=== PATIENT | male | born 1960 | race Asian ===

== ENCOUNTER 2016-10-20 16:32 | Emergency (ER) | payer MEDICARE, MEDICAID ==
[~2016-10-20] VITALS: Ht 167.6 cm; Wt 77.1 kg
[~2016-10-20 16:32] MED LIST: DOXYCYCLINE MO100 MG ORAL; FLONASE1 SPRAYS NASAL; IBUPROFEN800 MG ORAL; MEDROL DOSEPAK4 MG ORAL; PROMETHAZINE V237 ML ORAL; SUDAFED60 MG ORAL; [UNRECOGNIZED DRUG - OTHER] RIGHT EYE
[2016-10-20] MEDS ORDERED: Mylanta II UD 30ml ORAL ONE (17:15)
[2016-10-20] MEDS ORDERED: Lidocaine 2% Visc 15ml soln ORAL ONE (17:15)
[2016-10-20] MEDS ORDERED: Tubing IV Cassette IV ONE (17:31)
[2016-10-20 18:18] LABS: APPEARANCE,URINE CLEAR; KETONES,URINE NEGATIVE (NEGATIVE); LEUKOCYTE ESTERASE ,URINE NEGATIVE (NEGATIVE); NITRITE,URINE NEGATIVE (NEGATIVE); PH,URINE 6 (4.5-8.0); PROTEIN,URINE NEGATIVE (NEGATIVE); UROBILINOGEN,URINE NORMAL MG/DL (0.0-1.0)
[2016-10-20 18:20] LABS: BASOPHILS % (AUTO) 1.2 % (0.0-2.0); EOSINOPHILS % (AUTO) 0.9 % (0.0-3.0); LYMPHOCYTES % (AUTO) 20.7 % (20.0-45.0); MEAN CORPUSCULAR HEMOGLOBIN 33.5 PG (27.0-31.0); MEAN CORPUSCULAR HGB CONC 36.1 G/DL (32.0-36.0); MEAN CORPUSCULAR VOLUME 93 FL (80-99); MONOCYTES % (AUTO) 6.7 % (1.0-10.0); NEUTROPHILS % (AUTO) 70.6 % (45.0-75.0); PLATELET COUNT 193 K/UL (150-450); RED BLOOD COUNT 5.29 M/UL (4.70-6.10); RED CELL DISTRIBUTION WIDTH 11.5 % (11.6-14.8); WHITE BLOOD COUNT 8.4 K/UL (4.8-10.8)
[2016-10-20 18:45] LABS: ALANINE AMINOTRANSFERASE 22 U/L (3-41); ALBUMIN/GLOBULIN RATIO 1.2 (1.0-2.7); ANION GAP 13 (5-15); ASPARTATE AMINO TRANSFERASE 21 U/L (5-40); CALCIUM 9.5 mg/dL (8.6-10.2); CARBON DIOXIDE 29 mEQ/L (20-30); CHLORIDE 95 mEQ/L (98-107); CREATININE 0.9 mg/dL (0.7-1.2); GLOMERULAR FILTRATION RATE > 60 mL/min (>60); HEMOLYSIS 8; LIPASE 37 U/L (< 60); POTASSIUM 3.5 mEQ/L (3.4-4.9); SODIUM 137 mEQ/L (135-145); TOTAL PROTEIN 7.8 g/dL (6.6-8.7)
[2016-10-20 18:48] LABS: TROPONIN I < 0.30 ng/mL (<=0.30)
--- NOTE | 2016-10-20 18:53 | Emergency Room Report ---
History of Present Illness General Chief Complaint: Abdominal Pain Source: Patient Present Illness HPI 56YOM walk-in with epigastric pain and nausea without vomiting since this morning. Denies fever/chills, diarrhea, previous abd surgery, sick contacts, foreign travel. Pain is not radiating, "heavy" in quality, intermittent. Allergies: Coded Allergies: No Known Allergies (Unverified , 04/01/14) Patient History Past Medical History: none Past Surgical History: none Pertinent Family History: none Social History: Denies: alcohol use, drug use, smoking Immunizations: UTD Reviewed Nursing Documentation: PMH: Agreed, PSxH: Agreed Nursing Documentation-PMH Past Medical History: No History, Except For Hx Hypertension: Yes Review of Systems All Other Systems: negative except mentioned in HPI Physical Exam Vital Signs Date Time Temp Pulse Resp B/P Pulse Ox O2 Delivery O2 Flow Rate FiO2 10/20/16 16:36 98.2 79 18 156/103 98 Room Air Sp02 EP Interpretation: reviewed, abnormal General Appearance: normal inspection, well appearing, no apparent distress, alert, GCS 15, non-toxic Head: normocephalic, atraumatic Eyes: bilateral eye EOMI, bilateral eye PERRL ENT: normal ENT inspection, hearing grossly normal, normal voice Neck: normal inspection, full range of motion, supple, no bony tend Respiratory: normal inspection, lungs clear, normal breath sounds, no respiratory distress, no retraction, no wheezing Cardiovascular #1: regular rate, rhythm, no edema Gastrointestinal: soft, non-distended, no guarding, no pulsatile mass, no rebound, other - Mild ttp to epigastrium Genitourinary: no CVA tenderness Musculoskeletal: normal inspection, back normal, normal range of motion, Josiah' s Sign negative Neurologic: normal inspection, alert, oriented x3, responsive, traffic 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 H&H stable. No LFT or lipase abnormalities Not a UTI Tolerating PO No vomiting Abd exam negative on serial exam Likely gastroenteritis Low suspicion for acute bacterial or surgical process to warrant additional testing, management at this time DC home Last Vital Signs Date Time Temp Pulse Resp B/P Pulse Ox O2 Delivery O2 Flow Rate FiO2 10/20/16 16:36 98.2 79 18 156/103 98 Room Air Status: improved Disposition: HOME, SELF-CARE Referrals: NON PHYSICIAN (PCP) LANCE FOOTE M.D. October 20, 2016 18:53
[2016-10-20] MEDS ORDERED: ZOFRAN ODT4 MG ORAL (18:54)
[2016-10-20] MEDS ORDERED: PEPCID20 MG ORAL (18:54)
[2016-10-20 19:19] VITALS: BP 148/85
[2016-10-20 19:20] VITALS: BP 156/103
--- NOTE | 2016-10-21 18:50 | Cardiology Report ---
APPROVED REPORT EKG Measurement Heart [id number] Normal sinus rhythm Right bundle branch block Abnormal ECG
== END 2016-10-20 19:21 | disposition home or self-care (01) ==
LOC: EMR 17:12
DX: R10.13 Epigastric pain (principal); R11.0 Nausea; I10 Essential (primary) hypertension
CPT/HCPCS: 36415; 80053; 80300; 81003; 83690; 84484; 85025; 93005; 96360; 96374; 99284; J2405

== ENCOUNTER 2016-12-28 21:00 | Emergency (ER) | payer MEDICARE, MEDICAID ==
[~2016-12-28] VITALS: Ht 170.2 cm; Wt 77.1 kg
[~2016-12-28 21:00] MED LIST changes: +PEPCID20 MG ORAL; +ZOFRAN ODT4 MG ORAL
[2016-12-28] MEDS ORDERED: BENAZEPRIL HCL10 MG ORAL (21:19)
[2016-12-28] MEDS ORDERED: ALBUTEROL2.5 MG/3 M INH (21:19)
[2016-12-28] MEDS ORDERED: IBUPROFEN600 MG ORAL (22:07)
--- NOTE | 2016-12-28 22:08 | Emergency Room Report ---
History of Present Illness General Chief Complaint: Lower Extremity Injury Source: Patient Present Illness HPI Is a 56-year-old male who presents with chief complaint of left knee pain. He was on a skateboard and holding the leash of his dog. The dog took off and he fell to his knee. This occurred just prior to arrival. Complaining of pain over the knee. 12/16. Able to walk. No other injury. Did not pass out. Allergies: Coded Allergies: No Known Allergies (Unverified , 04/01/14) Patient History Past Medical History: see triage record, old chart reviewed Past Surgical History: other Pertinent Family History: none Social History: Denies: smoking Immunizations: other Reviewed Nursing Documentation: PMH: Agreed, PSxH: Agreed Nursing Documentation-PMH Hx Hypertension: Yes Review of Systems Eye: Denies: blurred vision, eye pain ENT: Denies: ear pain, nose congestion, throat swelling Respiratory: Denies: cough, shortness of breath Cardiovascular: Denies: chest pain, palpitations Gastrointestinal: Denies: abdominal pain, diarrhea, nausea, vomiting Musculoskeletal: Reports: joint pain, Denies: back pain Skin: Denies: rash Neurological: Denies: headache, numbness Endocrine: Denies: increased thirst, increased urine Hematologic/Lymphatic: Denies: easy bruising All Other Systems: negative except mentioned in HPI Physical Exam Vital Signs Date Time Temp Pulse Resp B/P Pulse Ox O2 Delivery O2 Flow Rate FiO2 12/28/16 21:12 98.2 72 18 149/92 97 vitals normal Sp02 EP Interpretation: reviewed, normal General Appearance: well appearing, no apparent distress, alert Head: normocephalic, atraumatic Eyes: bilateral eye EOMI, bilateral eye PERRL ENT: hearing grossly normal, normal pharynx Neck: full range of motion, supple, no meningismus Respiratory: chest non-tender, lungs clear, normal breath sounds Cardiovascular #1: regular rate, rhythm, no murmur Gastrointestinal: normal bowel sounds, non tender, no mass, no organomegaly, no bruit, non-distended Musculoskeletal: back normal, gait/station normal, normal range of motion, other Psychiatric: mood/affect normal Skin: warm/dry Medical Decision Making Diagnostic Impression: Primary Impression: Abrasion, left knee, initial encounter Additional Impression: Contusion of left knee, initial encounter ER Course Patient with soft tissue injury to the knee. No fracture dislocation. We'll discharge home. Other X-Ray Diagnostic Results Other X-Ray Diagnostic Results : X-Ray ordered: Left knee # of Views/Limited Vs Complete: 4 View Indication: Pain EP Interpretation: Yes Interpretation: no dislocation, no soft tissue swelling, no fractures Impression: No acute disease Interpreting ER Provider: Electronically signed by Gama Waldrop MD Last Vital Signs Date Time Temp Pulse Resp B/P Pulse Ox O2 Delivery O2 Flow Rate FiO2 12/28/16 21:12 98.2 72 18 149/92 97 Status: improved Disposition: HOME, SELF-CARE Condition: Stable Scripts Ibuprofen* (MOTRIN*) 600 Mg Tablet 600 MG ORAL THREE TIMES A DAY, #30 TAB 0 Refills Prov: GAMA WALDROP M.D. 12/28/16 Patient Instructions: Knee Sprain Additional Instructions: Followup with your DrNoemi in 7 days. Ice pack to the area. Return if worse. GAMA WALDROP M.D. Dec 28, 2016 22:08
[2016-12-28 22:18] VITALS: BP 149/92
--- NOTE | 2016-12-30 09:15 | Diagnostic Imaging Report ---
Indication: Trauma with pain Technique: XRAY KNEE THREE VIEWS LEFT Comparison: None. Findings: The osseous structures are intact. There is no fracture or destruction. The visualized joints are normal. There is an enthesophyte at the anterior superior margin of the patella. Soft tissues are unremarkable. There is no effusion. Impression: Small enthesophyte at the quadriceps tendon attachment. Otherwise negative.
== END 2016-12-28 22:19 | disposition home or self-care (01) ==
LOC: EMR 22:09
DX: S80.212A Abrasion, left knee, initial encounter (principal); S80.02XA Contusion of left knee, initial encounter; W19.XXXA Unspecified fall, initial encounter; Y93.51 Activity, roller skating (inline) and skateboarding; Y92.89 Other specified places as the place of occurrence of the external cause; I10 Essential (primary) hypertension
CPT/HCPCS: 99283

== ENCOUNTER 2017-05-08 16:37 | Emergency (ER) | payer MEDICARE, MEDICAID ==
[~2017-05-08] VITALS: Ht 170.2 cm; Wt 77.1 kg
[~2017-05-08 16:37] MED LIST changes: +ALBUTEROL2.5 MG/3 M INH; +BENAZEPRIL HCL10 MG ORAL; +IBUPROFEN600 MG ORAL
[2017-05-08 17:05] VITALS: BP 122/66
[2017-05-08] MEDS ORDERED: PREDNISONE20 MG ORAL (17:36)
[2017-05-08] MEDS ORDERED: EPIPEN 2-P0.3 MG/0.3 IM (17:36)
[2017-05-08] MEDS ORDERED: BENADRYL25 MG ORAL (17:36)
[2017-05-08 17:42] VITALS: BP 124/64
--- NOTE | 2017-05-08 21:46 | Emergency Room Report ---
History of Present Illness General Chief Complaint: Skin Rash/Abscess Source: Patient Present Illness HPI The patient is a 56-year-old male presenting with a skin rash. He states that this began yesterday for no known reason. He denies any known allergies but states that he has had hives in the past. He is unsure of what might have caused this. He states it is extremely itchy. He denies any pain. He took one Benadryl yesterday and states it did not help. He denies any other symptoms including nausea, vomiting, fever, chills, shortness of breath, chest pain Allergies: Coded Allergies: No Known Allergies (Unverified , 04/01/14) Patient History Past Medical History: see triage record Pertinent Family History: none Reviewed Nursing Documentation: PMH: Agreed, PSxH: Agreed Nursing Documentation-PMH Past Medical History: No Stated History Hx Hypertension: Yes Review of Systems All Other Systems: negative except mentioned in HPI Physical Exam Vital Signs Date Time Temp Pulse Resp B/P (MAP) Pulse Ox O2 Delivery O2 Flow Rate FiO2 05/08/17 16:57 97.9 99 16 113/65 97 Room Air Sp02 EP Interpretation: reviewed, normal General Appearance: no apparent distress, alert, GCS 15, non-toxic Head: normocephalic, atraumatic Eyes: bilateral eye normal inspection, bilateral eye PERRL ENT: hearing grossly normal, normal pharynx, no angioedema, normal voice Neck: full range of motion, supple/symm/no masses Respiratory: chest non-tender, lungs clear, normal breath sounds, no respiratory distress, no accessory muscle use, speaking full sentences Cardiovascular #1: regular rate, rhythm, no edema Musculoskeletal: back normal, gait/station normal, normal range of motion, non- tender Neurologic: alert, oriented x3, responsive, motor strength/tone normal, sensory intact, speech normal Psychiatric: judgement/insight normal, memory normal, mood/affect normal, no suicidal/homicidal ideation Skin: well hydrated, rash - Diffuse urticaria to the arms and torso Medical Decision Making PA Attestation Dr. Cheema is my supervising physician. Patient management was discussed with my supervising physician Diagnostic Impression: Primary Impression: Allergic reaction Qualified Codes: T78.40XA - Allergy, unspecified, initial encounter Additional Impression: Rash and other nonspecific skin eruption ER Course The patient is a 56-year-old male presenting with a skin rash. Ddx considered include but not limited to allergic reaction, anaphylaxis, eczema , cellulitis PE: NAD HEENT exam is unremarkable. No edema. Oropharynx is patent Lungs clear to auscultation bilaterally. No wheezing. No distress Skin: There is diffuse urticaria to the arms and torso. Nontender The patient is given prednisone and Benadryl and a prescription for EpiPen with instructions. He will followup with his primary doctor. ER precautions are given Last Vital Signs Date Time Temp Pulse Resp B/P (MAP) Pulse Ox O2 Delivery O2 Flow Rate FiO2 05/08/17 17:42 74 18 124/64 100 Room Air 05/08/17 17:05 97.9 Status: improved Disposition: HOME, SELF-CARE Condition: Improved Scripts Diphenhydramine Hcl* (BENADRYL*) 25 Mg Capsule 25 MG ORAL Q6H Y for Itching, #20 CAP Prov: JUDI DAWSON.A. 05/08/17 Prednisone* (PREDNISONE*) 20 Mg Tablet 40 MG ORAL DAILY, #8 TAB Prov: JUDI DAWSON P.A. 05/08/17 Epinephrine (Epipen 2-Jay) 0.3 Mg/0.3 Ml Auto.injct 0.3 MG IM PRN, #1 EA Prov: JUDI DAWSON P.A. 05/08/17 Referrals: [facility],REFERRING (PCP) Patient Instructions: Rash Additional Instructions: I discussed my findings with the patient. All questions and concerns have been answered. Treatment and medication compliance have been addressed. I advised the patient that they need to follow up with PMD in 3-5 days. Return to ED if symptoms worsen, new symptoms arise, or if needed for any reason. Patient verbalized understanding of discharge instructions. JUDI DAWSON May 08, 2017 21:46
== END 2017-05-08 18:00 | disposition home or self-care (01) ==
LOC: EMR 17:43
DX: T78.40XA Allergy, unspecified, initial encounter (principal); R21 Rash and other nonspecific skin eruption; X58.XXXA Exposure to other specified factors, initial encounter; I10 Essential (primary) hypertension
CPT/HCPCS: 99284

== ENCOUNTER 2017-05-22 18:36 | Inpatient (IN) | payer MEDICARE, MEDICAID ==
[~2017-05-22] VITALS: Ht 170.2 cm; Wt 77.1 kg
[~2017-05-22 18:36] MED LIST changes: +BENADRYL25 MG ORAL; +EPIPEN 2-P0.3 MG/0.3 IM; +PREDNISONE20 MG ORAL
[2017-05-22] MEDS ORDERED: Ondansetron ODT 8mg tab ORAL ONE (19:15)
[2017-05-22 20:08] LABS: BASOPHILS % (AUTO) 0.3 % (0.0-2.0); EOSINOPHILS % (AUTO) 0.3 % (0.0-3.0); LYMPHOCYTES % (AUTO) 18.2 % (20.0-45.0); MEAN CORPUSCULAR HEMOGLOBIN 30.6 PG (27.0-31.0); MEAN CORPUSCULAR HGB CONC 32.3 G/DL (32.0-36.0); MEAN CORPUSCULAR VOLUME 95 FL (80-99); MEAN PLATELET VOLUME 7.6 FL (6.5-10.1); MONOCYTES % (AUTO) 6.6 % (1.0-10.0); NEUTROPHILS % (AUTO) 74.6 % (45.0-75.0); PLATELET COUNT 290 K/UL (150-450); RED BLOOD COUNT 6.09 M/UL (4.70-6.10); RED CELL DISTRIBUTION WIDTH 11.8 % (11.6-14.8); WHITE BLOOD COUNT 15.7 K/UL (4.8-10.8)
[2017-05-22 20:13] LABS: APPEARANCE,URINE CLEAR; KETONES,URINE NEGATIVE (NEGATIVE); LEUKOCYTE ESTERASE ,URINE NEGATIVE (NEGATIVE); NITRITE,URINE NEGATIVE (NEGATIVE); PH,URINE 7 (4.5-8.0); PROTEIN,URINE NEGATIVE (NEGATIVE); UROBILINOGEN,URINE NORMAL MG/DL (0.0-1.0)
[2017-05-22 20:25] LABS: ANION GAP 5 mmol/L (5-15); CALCIUM 10.2 MG/DL (8.5-10.1); CARBON DIOXIDE 36 MMOL/L (21-32); CHLORIDE 96 MMOL/L (98-107); CREATININE 1.3 MG/DL (0.55-1.30); GLOMERULAR FILTRATION RATE 57.3 mL/min (>60); POTASSIUM 4.1 MMOL/L (3.5-5.1); SODIUM 137 MMOL/L (136-145)
[2017-05-22 20:27] LABS: ALANINE AMINOTRANSFERASE 29 U/L (12-78); ALBUMIN/GLOBULIN RATIO 0.9 (1.0-2.7); ASPARTATE AMINO TRANSFERASE 15 U/L (15-37); LIPASE 1298 U/L (73-393); TOTAL PROTEIN 7.5 G/DL (6.4-8.2)
[2017-05-22] MEDS ORDERED: Morphine Sulfate 4mg/ml Inj IVP ONE (20:45)
[2017-05-22 21:41] VITALS: BP 150/95
--- NOTE | 2017-05-22 21:55 | Emergency Room Report ---
History of Present Illness General Chief Complaint: General Complaint Source: Patient, Medical Record Present Illness HPI 56 y/o male c/o flu-like sxs x today. Assoc sxs include epigastric pain with nausea, vomiting, bodyaches and chills. States that onset began this morning after taking atarax and benadryl for his hives which he describes is pruritic and universal which has been present for 2 weeks and just completed a 2 week course of prednisone w/o resolution of sxs. States he has taken nothing else for his sxs and denies any CP, SOB, back pain, neck pain, [place], ear pain, sore throat or melena. Allergies: Coded Allergies: No Known Allergies (Unverified , 04/01/14) Patient History Past Medical History: see triage record Past Surgical History: none Pertinent Family History: none Reviewed Nursing Documentation: PMH: Agreed, PSxH: Agreed Nursing Documentation-PMH Past Medical History: No History, Except For Hx Hypertension: Yes Review of Systems All Other Systems: negative except mentioned in HPI Physical Exam Vital Signs Date Time Temp Pulse Resp B/P (MAP) Pulse Ox O2 Delivery O2 Flow Rate FiO2 05/22/17 18:42 97.9 68 18 150/95 97 Room Air Sp02 EP Interpretation: reviewed, normal General Appearance: no apparent distress, alert, GCS 15, non-toxic, other - ill appearing Head: normocephalic, atraumatic Eyes: bilateral eye normal inspection, bilateral eye PERRL ENT: hearing grossly normal, normal pharynx, no angioedema, normal voice Neck: full range of motion, supple/symm/no masses Respiratory: chest non-tender, lungs clear, normal breath sounds, speaking full sentences Cardiovascular #1: regular rate, rhythm, no edema Gastrointestinal: soft, non-distended, no guarding, no hernia, tenderness - epigastric Musculoskeletal: back normal, gait/station normal, normal range of motion, non- tender, calf tenderness Neurologic: alert, oriented x3, responsive, motor strength/tone normal, sensory intact, speech normal Psychiatric: judgement/insight normal, memory normal, mood/affect normal, no suicidal/homicidal ideation Skin: normal color, warm/dry, well hydrated, rash - universal macularpapular rash Lymphatic: no adenopathy Medical Decision Making PA Attestation Dr. Putnam my supervising physician with whom patient management has been discussed with. Diagnostic Impression: Primary Impression: Pancreatitis Qualified Codes: K85.90 - Acute pancreatitis without necrosis or infection, unspecified ER Course Pt. presents to the ED c/o flu-like sxs Differential diagnosis includes appendicitis, diverticulitis, gastroenteritis, abdominal hernia, pancreatitis, cholecystitis, nephrolithiasis, and testicular torsion. Vital signs: are WNL, pt. is afebrile H&PE are most consistent with pancreatitis with lipase >1200 ORDERS / ED INTERVENTIONS: My Orders - AMANDA BULLARD Procedure Category Date Status Time Vital Signs CARE 05/22/17 Transmitted 19:08 Iv Access / Saline CARE 05/22/17 Transmitted Lock 19:08 Cbc W/ Differential LAB 05/22/17 Complete 19:08 CMP LAB 05/22/17 Complete 19:08 Lipase LAB 05/22/17 Complete 19:08 Urinalysis Reflex LAB 05/22/17 Complete Microscopy 19:08 Ns 1000ml (Sodium PHA 05/22/17 Complete Chloride 1000ml Bag) 19:08 Ondansetron Odt PHA 05/22/17 Complete (Zofran Odt) 19:15 Saline 10ml Flush PHA 05/22/17 In Process (Saline 10ml Flush) 19:[address] 05/22/17 Taken W/Contrast 20:33 Morphine Sulfate PHA 05/22/17 Complete (Morphine Sulfate) 20:45 DISCHARGE: At this time pt. is stable for d/c to home. Will provide printed patient care instructions, and any necessary prescriptions. Care plan and follow up instructions have been discussed with the patient prior to discharge. Laboratory Tests Test 05/22/17 19:40 White Blood Count 15.7 K/UL (4.8-10.8) H Red Blood Count 6.09 M/UL (4.70-6.10) Hemoglobin 18.6 G/DL (14.2-18.0) *H Hematocrit 57.6 % (42.0-52.0) H Mean Corpuscular Volume 95 FL (80-99) Mean Corpuscular Hemoglobin 30.6 PG (27.0-31.0) Mean Corpuscular Hemoglobin Concent 32.3 G/DL (32.0-36.0) Red Cell Distribution Width 11.8 % (11.6-14.8) Platelet Count 290 K/UL (150-450) Mean Platelet Volume 7.6 FL (6.5-10.1) Neutrophils (%) (Auto) 74.6 % (45.0-75.0) Lymphocytes (%) (Auto) 18.2 % (20.0-45.0) L Monocytes (%) (Auto) 6.6 % (1.0-10.0) Eosinophils (%) (Auto) 0.3 % (0.0-3.0) Basophils (%) (Auto) 0.3 % (0.0-2.0) Urine Color Pale yellow Urine Appearance Clear Urine pH 7 (4.5-8.0) Urine Specific [place] 1.015 (1.005-1.035) Urine Protein Negative (NEGATIVE) Urine Glucose (UA) Negative (NEGATIVE) Urine Ketones Negative (NEGATIVE) Urine Occult Blood Negative (NEGATIVE) Urine Nitrite Negative (NEGATIVE) Urine Bilirubin Negative (NEGATIVE) Urine Urobilinogen Normal MG/DL (0.0-1.0) Urine Leukocyte Esterase Negative (NEGATIVE) Sodium Level 137 MMOL/L (136-145) Potassium Level 4.1 MMOL/L (3.5-5.1) Chloride Level 96 MMOL/L (98-107) L Carbon Dioxide Level 36 MMOL/L (21-32) H Anion Gap 5 mmol/L (5-15) Blood Urea Nitrogen 14 mg/dL (7-18) Creatinine 1.3 MG/DL (0.55-1.30) Estimate Glomerular Filtration Rate 57.3 mL/min (>60) Glucose Level 140 MG/DL (74-106) H Calcium Level 10.2 MG/DL (8.5-10.1) H Total Bilirubin 0.9 MG/DL (0.2-1.0) Aspartate Amino Transferase (AST) 15 U/L (15-37) Alanine Aminotransferase (ALT) 29 U/L (12-78) Alkaline Phosphatase 77 U/L (46-116) Total Protein 7.5 G/DL (6.4-8.2) Albumin 3.5 G/DL (3.4-5.0) Globulin 4.0 g/dL Albumin/Globulin Ratio 0.9 (1.0-2.7) L Lipase 1298 U/L (73-393) H Last Vital Signs Date Time Temp Pulse Resp B/P (MAP) Pulse Ox O2 Delivery O2 Flow Rate FiO2 05/22/17 21:41 97.9 18 150/95 97 Room Air 05/22/17 18:42 68 Disposition: ADMITTED INPATIENT Admit Decision Time: 20:48 Signed Out To: Dr. Putnam Referrals: NON PHYSICIAN (PCP) AMANDA BULLARD May 22, 2017 21:55
[2017-05-22 22:30] VITALS: BP 133/78
[2017-05-22] MEDS ORDERED: Nitroglycerin Subl 0.4mg tab SL PRN (22:45)
[2017-05-22] MEDS ORDERED: Mylanta II UD 30ml ORAL PRN (22:45)
[2017-05-22] MEDS ORDERED: Metoclopramide 10mg/2ml Inj IVP PRN (22:45)
[2017-05-22] MEDS ORDERED: Miralax 17gm pkt ORAL PRN (22:45)
[2017-05-22] MEDS ORDERED: LORazepam Inj 2mg/ml 1ml IV PRN (22:45)
[2017-05-22] MEDS: D5 1/2NS 1,000 ML IV SCH (23:38)
[2017-05-23] VITALS: BP_SYST 127; BP_SYST 99; BP_DIAS 60; BP_DIAS 71
[2017-05-23] MEDS: Morphine Sulfate 2mg/ml Inj IVP PRN ×2 (00:20→04:21)
[2017-05-23 04:00] VITALS: BP 129/84
[2017-05-23 07:30] LABS: ALANINE AMINOTRANSFERASE 21 U/L (12-78); ALBUMIN/GLOBULIN RATIO 0.8 (1.0-2.7); AMYLASE 102 U/L (25-115); ANION GAP 5 mmol/L (5-15); ASPARTATE AMINO TRANSFERASE 13 U/L (15-37); CALCIUM 8.7 MG/DL (8.5-10.1); CARBON DIOXIDE 32 MMOL/L (21-32); CHLORIDE 97 MMOL/L (98-107); CREATININE 1.1 MG/DL (0.55-1.30); GLOMERULAR FILTRATION RATE > 60 mL/min (>60); LIPASE 447 U/L (73-393); POTASSIUM 4.1 MMOL/L (3.5-5.1); SODIUM 134 MMOL/L (136-145); TOTAL PROTEIN 6.3 G/DL (6.4-8.2)
[2017-05-23 07:32] LABS: BILIRUBIN,DIRECT 0.2 MG/DL (0.0-0.3)
[2017-05-23 07:35] LABS: BASOPHILS % (AUTO) 0.6 % (0.0-2.0); EOSINOPHILS % (AUTO) 0.5 % (0.0-3.0); MEAN CORPUSCULAR HEMOGLOBIN 31.8 PG (27.0-31.0); MEAN CORPUSCULAR HGB CONC 33.7 G/DL (32.0-36.0); MEAN CORPUSCULAR VOLUME 94 FL (80-99); MEAN PLATELET VOLUME 7.7 FL (6.5-10.1); MONOCYTES % (AUTO) 5.7 % (1.0-10.0); NEUTROPHILS % (AUTO) 79.2 % (45.0-75.0); PLATELET COUNT 256 K/UL (150-450); RED BLOOD COUNT 5.29 M/UL (4.70-6.10); RED CELL DISTRIBUTION WIDTH 11.5 % (11.6-14.8); WHITE BLOOD COUNT 13.1 K/UL (4.8-10.8)
[2017-05-23 08:00] VITALS: BP 125/72
--- NOTE | 2017-05-23 08:27 | Consultation ---
History of Present Illness General Date patient seen: May 23, 2017 Time patient seen: 12:00 Chief Complaint: General Complaint Referring physician: dr Reeves Reason for Consultation: inpatient management Present Illness HPI 56 y/o male presented with epigastric pain with nausea, vomiting, body aches and chills. Patient recently developed systemic hives and was on Atarax, Benadryl and 3 bottles of steroids apparently had allergy to shellfish and recently ate crab denied any CP, SOB, back pain, neck pain, SPRING, ear pain, sore throat or melena. Workup in ED revealed lipase-1298, WBC -15.7, stable LFT and bili CT AP revealed no acute findings patient was admitted for further management Allergies: Coded Allergies: SHELLFISH DERIVED (Verified Adverse Reaction, Severe, Hives, 05/23/17) Medication History Scheduled Benazepril Hcl* (Benazepril Hcl*), 10 MG ORAL DAILY, (Reported) Epinephrine (Epipen 2-Jay), 0.3 MG IM PRN Fluticasone Propionate (Fluticasone Propionate), 1 SPRAY NASAL TWICE A DAY Ibuprofen* (Motrin*), 600 MG ORAL THREE TIMES A DAY Prednisone* (Prednisone*), 40 MG ORAL DAILY Scheduled PRN Albuterol Sulfate* (Albuterol Sulfate Hhn*), Unknown Dose INH Q4H PRN for Shortness of Breath, (Reported) Diphenhydramine Hcl* (Benadryl*), 25 MG ORAL Q6H PRN for Itching Patient History History Provided By: Patient Healthcare decision maker Resuscitation status Full Code Advanced Directive on File Past Medical/Surgical History Past Medical/Surgical History: (1) Arthritis (2) Allergic reaction Review of Systems Constitutional: Reports: see HPI Eye: Reports: no symptoms ENT: Reports: no symptoms Respiratory: Reports: no symptoms Cardiovascular: Reports: no symptoms Gastrointestinal: Reports: see HPI Genitourinary: Reports: no symptoms Musculoskeletal: Reports: other - arthritis Skin: Reports: see HPI Psychiatric: Reports: no symptoms Neurological: Reports: no symptoms Endocrine: Reports: no symptoms Hematologic/Lymphatic: Reports: no symptoms Physical Exam General Appearance: WD/WN, alert Lines, tubes and drains: peripheral HEENT: normocephalic, atraumatic, anicteric, mucous membranes moist Neck: non-tender, supple Respiratory/Chest: chest wall non-tender, lungs clear, no respiratory distress , no accessory muscle use Cardiovascular/Chest: normal peripheral pulses, normal rate, regular rhythm, no JVD Abdomen: normal bowel sounds, non tender, soft Extremities: normal range of motion, non-tender, no calf tenderness, normal capillary refill Neurologic: no motor/sensory deficits, alert, oriented x 3, responsive, normal mood/affect Musculoskeletal: normal muscle bulk Last 24 Hour Vital Signs Date Time Temp Pulse Resp B/P (MAP) Pulse Ox O2 Delivery O2 Flow Rate FiO2 05/23/17 04:00 98.8 80 20 129/84 98 05/23/17 00:00 98.5 75 20 127/71 100 05/22/17 22:30 99.9 72 18 133/78 100 05/22/17 21:41 97.9 18 150/95 97 Room Air 05/22/17 21:41 97.9 18 150/95 97 Room Air 05/22/17 18:42 97.9 68 18 150/95 97 Room Air Laboratory Tests Test 05/22/17 19:40 05/23/17 05:55 White Blood Count 15.7 K/UL (4.8-10.8) H 13.1 K/UL (4.8-10.8) H Red Blood Count 6.09 M/UL (4.70-6.10) 5.29 M/UL (4.70-6.10) Hemoglobin 18.6 G/DL (14.2-18.0) *H 16.8 G/DL (14.2-18.0) Hematocrit 57.6 % (42.0-52.0) H 49.9 % (42.0-52.0) Mean Corpuscular Volume 95 FL (80-99) 94 FL (80-99) Mean Corpuscular Hemoglobin 30.6 PG (27.0-31.0) 31.8 PG (27.0-31.0) H Mean Corpuscular Hemoglobin Concent 32.3 G/DL (32.0-36.0) 33.7 G/DL (32.0-36.0) Red Cell Distribution Width 11.8 % (11.6-14.8) 11.5 % (11.6-14.8) L Platelet Count 290 K/UL (150-450) 256 K/UL (150-450) Mean Platelet Volume 7.6 FL (6.5-10.1) 7.7 FL (6.5-10.1) Neutrophils (%) (Auto) 74.6 % (45.0-75.0) 79.2 % (45.0-75.0) H Lymphocytes (%) (Auto) 18.2 % (20.0-45.0) L 14.0 % (20.0-45.0) L Monocytes (%) (Auto) 6.6 % (1.0-10.0) 5.7 % (1.0-10.0) Eosinophils (%) (Auto) 0.3 % (0.0-3.0) 0.5 % (0.0-3.0) Basophils (%) (Auto) 0.3 % (0.0-2.0) 0.6 % (0.0-2.0) Urine Color Pale yellow Urine Appearance Clear Urine pH 7 (4.5-8.0) Urine Specific [place] 1.015 (1.005-1.035) Urine Protein Negative (NEGATIVE) Urine Glucose (UA) Negative (NEGATIVE) Urine Ketones Negative (NEGATIVE) Urine Occult Blood Negative (NEGATIVE) Urine Nitrite Negative (NEGATIVE) Urine Bilirubin Negative (NEGATIVE) Urine Urobilinogen Normal MG/DL (0.0-1.0) Urine Leukocyte Esterase Negative (NEGATIVE) Sodium Level 137 MMOL/L (136-145) 134 MMOL/L (136-145) L Potassium Level 4.1 MMOL/L (3.5-5.1) 4.1 MMOL/L (3.5-5.1) Chloride Level 96 MMOL/L (98-107) L 97 MMOL/L (98-107) L Carbon Dioxide Level 36 MMOL/L (21-32) H 32 MMOL/L (21-32) Anion Gap 5 mmol/L (5-15) 5 mmol/L (5-15) Blood Urea Nitrogen 14 mg/dL (7-18) 10 mg/dL (7-18) Creatinine 1.3 MG/DL (0.55-1.30) 1.1 MG/DL (0.55-1.30) Estimat Glomerular Filtration Rate 57.3 mL/min (>60) > 60 mL/min (>60) Glucose Level 140 MG/DL (74-106) H 159 MG/DL (74-106) H Calcium Level 10.2 MG/DL (8.5-10.1) H 8.7 MG/DL (8.5-10.1) Total Bilirubin 0.9 MG/DL (0.2-1.0) 1.1 MG/DL (0.2-1.0) H Aspartate Amino Transf (AST/SGOT) 15 U/L (15-37) 13 U/L (15-37) L Alanine Aminotransferase (ALT/SGPT) 29 U/L (12-78) 21 U/L (12-78) Alkaline Phosphatase 77 U/L (46-116) 66 U/L (46-116) Total Protein 7.5 G/DL (6.4-8.2) 6.3 G/DL (6.4-8.2) L Albumin 3.5 G/DL (3.4-5.0) 2.8 G/DL (3.4-5.0) L Globulin 4.0 g/dL 3.5 g/dL Albumin/Globulin Ratio 0.9 (1.0-2.7) L 0.8 (1.0-2.7) L Lipase 1298 U/L (73-393) H 447 U/L (73-393) H Activated Partial Thromboplast Time 28 SEC (23-33) Direct Bilirubin 0.2 MG/DL (0.0-0.3) Amylase Level 102 U/L (25-115) Height (Feet): 5 Height (Inches): 7.00 Weight (Pounds): 170 Medications Current Medications Medications (Trade) Dose Ordered Sig/Michelle Route PRN Reason Start Time Stop Time Status Last Admin Dose Admin Acetaminophen (Tylenol) 650 mg Q4H PRN ORAL fever 05/22/17 22:45 06/21/17 22:44 Al Hydroxide/Mg Hydroxide (Mylanta II) 30 ml Q6H PRN ORAL dyspepsia 05/22/17 22:45 06/21/17 22:44 Benazepril HCl (Lotensin) 10 mg DAILY ORAL 05/23/17 09:00 06/22/17 08:59 Dextrose (Dextrose 50%) STAT PRN IV Hypoglycemia 05/22/17 22:45 1/13/18 22:44 Dextrose/Sodium Chloride 1,000 ml @ 75 mls/hr [id number] IV 05/22/17 22:36 06/21/17 22:35 05/22/17 23:38 Diphenhydramine HCl (Benadryl) 25 mg Q6H PRN ORAL Itching/Pruritis 05/22/17 22:45 06/21/17 22:44 Heparin Sodium (Porcine) (Heparin 5000 units/ml) 5,000 units EVERY 12 HOURS SUBQ 05/23/17 09:00 06/22/17 08:59 Lorazepam (Ativan 2mg/ml 1ml) 1 mg EVERY 4 HOURS PRN IV agitation 05/22/17 22:45 05/29/17 22:44 Metoclopramide HCl (Reglan) 10 mg EVERY 6 HOURS PRN IVP servere nauasea 05/22/17 22:45 06/21/17 22:44 Morphine Sulfate (Morphine Sulfate) 2 mg EVERY 4 HOURS PRN IVP severe Pain (Pain Scale 7-10) 05/22/17 22:45 05/29/17 22:44 05/23/17 04:21 Nitroglycerin (Ntg) 0.4 mg Q5M X 3 DOSES PRN SL Prn Chest Pain 05/22/17 22:45 06/21/17 22:44 Ondansetron HCl (Zofran) 4 mg Q6H PRN IVP Nausea & Vomiting 05/22/17 22:45 06/21/17 22:44 Pantoprazole (Protonix) 40 mg DAILY IV 05/23/17 09:00 06/22/17 08:59 Polyethylene Glycol (Miralax) 17 gm HSPRN PRN ORAL Constipation 05/22/17 22:45 06/21/17 22:44 Promethazine HCl (Phenergan) 25 mg EVERY 8 HOURS PRN IV refractory nausea 05/22/17 22:45 06/21/17 22:44 Temazepam (Restoril) 15 mg HSPRN PRN ORAL Insomnia 05/22/17 22:45 05/29/17 22:44 Assessment/Plan Assessment/Plan ASSESSMENT allergic reaction possible acute pancreatitis, likely drug induced Leukocytosis epigastric pain HTN PLAN OF CARE MS floor IVF trial of CL and advance as tolerated Pain management a/emetic prn GI eval appreciated Trend lipase, amylase CT A/P noted abdominal US pending Benadryl prn s/p steroids DVT GI prophylaxis patient on LACHELLE, will stop as possible factor in allergic reaction case discussed and evaluated by supervising physician Ki (Graeme),Tashia FIERRO May 23, 2017 08:27
[2017-05-23] MEDS: Pantoprazole Inj IV SCH (08:43)
[2017-05-23] MEDS: Heparin 5000 units/ml inj SUBQ SCH ×2 (08:45→20:40)
[2017-05-23] MEDS ORDERED: Benazepril 10mg tab ORAL SCH (09:00)
--- NOTE | 2017-05-23 10:18 | Diagnostic Imaging Report ---
Clinical Indication: Abdominal pain Technique: No oral contrast utilized, per emergency room physician request IV administration nonionic contrast. Venous phase spiral acquisition obtained through the abdomen and pelvis. Multiplanar reconstructions were generated. Total dose length product 676.42 mGycm. CTDIvol(s) 12.84 mGy. Dose reduction achieved using automated exposure control Comparison: none Findings: Normal appendix. No evidence of diverticulosis or diverticulitis. No small bowel distention. No free or loculated intraperitoneal air or fluid is evident. The stomach is mildly distended. The distal esophagus is unremarkable. The duodenum is unremarkable. The liver, gallbladder, bile ducts, pancreas, spleen, adrenals are unremarkable. Subcentimeter low-attenuation renal lesions are seen bilaterally. No renal or ureteral calculi, hydronephrosis, or hydroureter. No pelvic mass or adenopathy. No retroperitoneal or mesenteric mass or adenopathy. The included lung bases are clear. The bones are unremarkable Impression: No acute abnormality Incidental finding subcentimeter low-attenuation renal lesions, too small to characterize. No further follow-up necessary This agrees with the preliminary interpretation provided overnight by [facility] teleradiology service. The CT scanner at [facility] is accredited by the [employer] and the scans are performed using protocols designed to limit radiation exposure to as low as reasonably achievable to attain images of sufficient resolution adequate for diagnostic evaluation.
[2017-05-23] MEDS ORDERED: DiphenhydrAMINE 50mg/ml Inj IVP PRN (10:30)
--- NOTE | 2017-05-23 10:58 | GI Initial Consult Note ---
History of Present Illness General Date patient seen: May 23, 2017 Time patient seen: 10:51 Reason for Hospitalization: General Complaint Referring physician: ABELARDO SMITH Reason for Consultation: Pancreatitis Present Illness HPI 56 y/o male c/o flu-like sxs x today. Assoc sxs include epigastric pain with nausea, vomiting, bodyaches and chills. States that onset began this morning after taking atarax and benadryl for his hives which he describes is pruritic and universal which has been present for 2 weeks and just completed a 2 week course of prednisone w/o resolution of sxs. States he has taken nothing else for his sxs and denies any CP, SOB, back pain, neck pain, SPRING, ear pain, sore throat or melena. GI consulted for pancreatitis. HPI as noted above. Pt seen on floor, awake A &Ox4 NAD with no active s/sx of N/V/D. Noted that patient has systemic hives. Stated it originally started as flea/bites when his son had the patient put on hydrogen peroxide all over his body x 24 hours and made it worse. The patient went to urgent care and was prescribe medication with no relief. Patient stated he took 3 bottles of prednisone. Further assessment revealed the patient may have an allergy to shellfish, stated he is allergic to shrimp and had recently eaten crab. He presents today with pancreatitis and mild leukocytosis. No history of endoscopies or colonoscopies. Home Meds Active Scripts Diphenhydramine Hcl* (BENADRYL*) 25 Mg Capsule, 25 MG ORAL Q6H Y for Itching, # 20 CAP Prov:TERZIAN,JUDI P.A. 05/08/17 Prednisone* (PREDNISONE*) 20 Mg Tablet, 40 MG ORAL DAILY, #8 TAB Prov:TERZIAN,JUDI P.A. 05/08/17 Epinephrine (Epipen 2-Jay) 0.3 Mg/0.3 Ml Auto.injct, 0.3 MG IM PRN, #1 EA Prov:TERZIAN,JUDI P.A. 05/08/17 Ibuprofen* (MOTRIN*) 600 Mg Tablet, 600 MG ORAL THREE TIMES A DAY, #30 TAB 0 Refills Prov:SUE LEVINE M.D. 12/28/16 Fluticasone Propionate (Fluticasone Propionate) 1 Sprays Naspr, 1 SPRAY NASAL TWICE A DAY, #16 GM Prov:JOSE MARIAALESHIA A. P.A. 07/01/14 Reported Medications Albuterol Sulfate* (ALBUTEROL SULFATE HHN*) 2.5 Mg/3 Ml Vial.neb, INH Q4H Y for Shortness of Breath, EA 12/28/16 Benazepril Hcl* (BENAZEPRIL HCL*) 10 Mg Tablet, 10 MG ORAL DAILY, TAB 12/28/16 Med list reviewed/reconciled: Yes Allergies: Coded Allergies: SHELLFISH DERIVED (Verified Adverse Reaction, Severe, Hives, 05/23/17) Patient History History Provided By: Patient, Medical Record PMH Narrative Past Medical History: see triage record Past Surgical History: none Pertinent Family History: none Reviewed Nursing Documentation: PMH: Agreed, PSxH: Agreed Nursing Documentation-PMH Past Medical History: No History, Except For Hx Hypertension: Yes Social History: Denies: smoking, alcohol use, drug use, other Review of Systems All Other Systems: negative except mentioned in HPI Physical Exam Vital Signs Date Time Temp Pulse Resp B/P (MAP) Pulse Ox O2 Delivery O2 Flow Rate FiO2 05/22/17 18:42 97.9 68 18 150/95 97 Room Air Sp02 EP Interpretation: reviewed, normal Labs Laboratory Tests Test 05/22/17 19:40 05/23/17 05:55 White Blood Count 15.7 K/UL (4.8-10.8) H 13.1 K/UL (4.8-10.8) H Red Blood Count 6.09 M/UL (4.70-6.10) 5.29 M/UL (4.70-6.10) Hemoglobin 18.6 G/DL (14.2-18.0) *H 16.8 G/DL (14.2-18.0) Hematocrit 57.6 % (42.0-52.0) H 49.9 % (42.0-52.0) Mean Corpuscular Volume 95 FL (80-99) 94 FL (80-99) Mean Corpuscular Hemoglobin 30.6 PG (27.0-31.0) 31.8 PG (27.0-31.0) H Mean Corpuscular Hemoglobin Concent 32.3 G/DL (32.0-36.0) 33.7 G/DL (32.0-36.0) Red Cell Distribution Width 11.8 % (11.6-14.8) 11.5 % (11.6-14.8) L Platelet Count 290 K/UL (150-450) 256 K/UL (150-450) Mean Platelet Volume 7.6 FL (6.5-10.1) 7.7 FL (6.5-10.1) Neutrophils (%) (Auto) 74.6 % (45.0-75.0) 79.2 % (45.0-75.0) H Lymphocytes (%) (Auto) 18.2 % (20.0-45.0) L 14.0 % (20.0-45.0) L Monocytes (%) (Auto) 6.6 % (1.0-10.0) 5.7 % (1.0-10.0) Eosinophils (%) (Auto) 0.3 % (0.0-3.0) 0.5 % (0.0-3.0) Basophils (%) (Auto) 0.3 % (0.0-2.0) 0.6 % (0.0-2.0) Urine Color Pale yellow Urine Appearance Clear Urine pH 7 (4.5-8.0) Urine Specific [place] 1.015 (1.005-1.035) Urine Protein Negative (NEGATIVE) Urine Glucose (UA) Negative (NEGATIVE) Urine Ketones Negative (NEGATIVE) Urine Occult Blood Negative (NEGATIVE) Urine Nitrite Negative (NEGATIVE) Urine Bilirubin Negative (NEGATIVE) Urine Urobilinogen Normal MG/DL (0.0-1.0) Urine Leukocyte Esterase Negative (NEGATIVE) Sodium Level 137 MMOL/L (136-145) 134 MMOL/L (136-145) L Potassium Level 4.1 MMOL/L (3.5-5.1) 4.1 MMOL/L (3.5-5.1) Chloride Level 96 MMOL/L (98-107) L 97 MMOL/L (98-107) L Carbon Dioxide Level 36 MMOL/L (21-32) H 32 MMOL/L (21-32) Anion Gap 5 mmol/L (5-15) 5 mmol/L (5-15) Blood Urea Nitrogen 14 mg/dL (7-18) 10 mg/dL (7-18) Creatinine 1.3 MG/DL (0.55-1.30) 1.1 MG/DL (0.55-1.30) Estimat Glomerular Filtration Rate 57.3 mL/min (>60) > 60 mL/min (>60) Glucose Level 140 MG/DL (74-106) H 159 MG/DL (74-106) H Calcium Level 10.2 MG/DL (8.5-10.1) H 8.7 MG/DL (8.5-10.1) Total Bilirubin 0.9 MG/DL (0.2-1.0) 1.1 MG/DL (0.2-1.0) H Aspartate Amino Transf (AST/SGOT) 15 U/L (15-37) 13 U/L (15-37) L Alanine Aminotransferase (ALT/SGPT) 29 U/L (12-78) 21 U/L (12-78) Alkaline Phosphatase 77 U/L (46-116) 66 U/L (46-116) Total Protein 7.5 G/DL (6.4-8.2) 6.3 G/DL (6.4-8.2) L Albumin 3.5 G/DL (3.4-5.0) 2.8 G/DL (3.4-5.0) L Globulin 4.0 g/dL 3.5 g/dL Albumin/Globulin Ratio 0.9 (1.0-2.7) L 0.8 (1.0-2.7) L Lipase 1298 U/L (73-393) H 447 U/L (73-393) H Activated Partial Thromboplast Time 28 SEC (23-33) Direct Bilirubin 0.2 MG/DL (0.0-0.3) Amylase Level 102 U/L (25-115) General Appearance: well appearing, no apparent distress, alert Head: normocephalic EENT: PERRL/EOMI, normal ENT inspection Neck: supple Respiratory: normal breath sounds, no respiratory distress Cardiovascular: normal rate Gastrointestinal: normal inspection, non tender, soft, normal bowel sounds, non -distended Rectal: deferred Genitourinary: deferred Musculoskeletal: normal inspection, back normal Neurologic: normal inspection, alert, oriented x3, responsive Psychiatric: normal inspection, judgement/insight normal, memory normal Skin: normal inspection, normal color, warm/dry, palpation normal, well hydrated, rash - systemic hives Lymphatic: normal inspection, no adenopathy Current Medications Current Medications Medications (Trade) Dose Ordered Sig/Michelle Route PRN Reason Start Time Stop Time Status Last Admin Dose Admin Acetaminophen (Tylenol) 650 mg Q4H PRN ORAL fever 05/22/17 22:45 06/21/17 22:44 Al Hydroxide/Mg Hydroxide (Mylanta II) 30 ml Q6H PRN ORAL dyspepsia 05/22/17 22:45 06/21/17 22:44 Benazepril HCl (Lotensin) 10 mg DAILY ORAL 05/23/17 09:00 06/22/17 08:59 05/23/17 08:44 Dextrose (Dextrose 50%) STAT PRN IV Hypoglycemia 05/22/17 22:45 06/21/17 22:44 Dextrose/Sodium Chloride 1,000 ml @ 75 mls/hr [id number] IV 05/22/17 22:36 06/21/17 22:35 05/22/17 23:38 Diphenhydramine HCl (Benadryl) 25 mg Q6H PRN IVP Itching 05/23/17 10:30 06/22/17 10:29 Diphenhydramine HCl (Benadryl) 25 mg Q6H PRN ORAL Itching/Pruritis 05/22/17 22:45 06/21/17 22:44 Heparin Sodium (Porcine) (Heparin 5000 units/ml) 5,000 units EVERY 12 HOURS SUBQ 05/23/17 09:00 06/22/17 08:59 05/23/17 08:45 Lorazepam (Ativan 2mg/ml 1ml) 1 mg EVERY 4 HOURS PRN IV agitation 05/22/17 22:45 05/29/17 22:44 Metoclopramide HCl (Reglan) 10 mg EVERY 6 HOURS PRN IVP servere nauasea 05/22/17 22:45 06/21/17 22:44 Morphine Sulfate (Morphine Sulfate) 2 mg EVERY 4 HOURS PRN IVP severe Pain (Pain Scale 7-10) 05/22/17 22:45 05/29/17 22:44 05/23/17 04:21 Nitroglycerin (Ntg) 0.4 mg Q5M X 3 DOSES PRN SL Prn Chest Pain 05/22/17 22:45 06/21/17 22:44 Ondansetron HCl (Zofran) 4 mg Q6H PRN IVP Nausea & Vomiting 05/22/17 22:45 06/21/17 22:44 Pantoprazole (Protonix) 40 mg DAILY IV 05/23/17 09:00 06/22/17 08:59 05/23/17 08:43 Polyethylene Glycol (Miralax) 17 gm HSPRN PRN ORAL Constipation 05/22/17 22:45 06/21/17 22:44 Promethazine HCl (Phenergan) 25 mg EVERY 8 HOURS PRN IV refractory nausea 05/22/17 22:45 06/21/17 22:44 Temazepam (Restoril) 15 mg HSPRN PRN ORAL Insomnia 05/22/17 22:45 05/29/17 22:44 GI: Plan Problems: (1) Allergic reaction (2) Rash and other nonspecific skin eruption (3) Pancreatitis Plan ?hx of shellfish allergy per patient CLD, adv as tolerated IV/PO hydration pain mgmt fu CT/US ppi Benadryl prn fu labs, lipase outpatient GI procedures Discussed with Dr. Mcpherson. Thank you for this patient referral, we will follow. Yenni Levine N.P. May 23, 2017 10:58
[2017-05-23 12:00] VITALS: BP 110/70
[2017-05-23] MEDS: D5 1/2NS 1,000 ML IV SCH (12:39)
[2017-05-23 15:38] VITALS: BP 92/45
--- NOTE | 2017-05-23 16:12 | Diagnostic Imaging Report ---
Indication: Abdominal pain. Abnormal liver function tests. Abnormal lipase Technique: Aquino-scale and duplex images of the upper abdomen were obtained Comparison: Reference made to CT scan 05/22/2017 Findings: Gallbladder is unremarkable, without stones, wall thickening, nor pericholecystic fluid. Sonographic Mcfarland's sign is negative. Common bile duct measures 8 mm in diameter. No intrahepatic biliary ductal dilatation. Liver demonstrates normal echogenicity, no focal abnormality. Portal vein and hepatic veins are patent. Pancreas is unremarkable. Spleen is unremarkable. Left kidney measures 10.8 cm in length. Right kidney measures 9.7 cm length. Both kidneys demonstrate normal echogenicity. There is no hydronephrosis. There are renal cysts bilaterally . Non-aneurysmal abdominal aorta . Impression: Mildly dilated common bile duct. Possibly a measurement artifact as the common bile duct is normal caliber on CT scan performed the previous day. Nonetheless, correlation with liver function tests is recommended, as well as consideration for MRCP for further evaluation if clinically indicated No acute or significant abnormality otherwise Incidental finding bilateral renal cysts
[2017-05-23] MEDS: Solu-MEDROL 40mg Inj IVP SCH (17:47)
[2017-05-23 20:00] VITALS: BP 95/58
--- NOTE | 2017-05-23 20:02 | History & Physical ---
History and Physical History & Physicial Dictated for Int Med - Dr Reeves no. [id number]. MARIO LARA May 23, 2017 20:02
[2017-05-24] VITALS (7 sets, daily range): BP systolic 91–124; BP diastolic 60–77
--- NOTE | 2017-05-24 01:17 | History and Physical Report ---
DATE OF ADMISSION: 05/22/2017 CHIEF COMPLAINT: The patient is a 56-year-old male, who presents with chief complaint of stomach pain. HISTORY OF PRESENT ILLNESS: The patient states he had gotten a rash approximately 2 weeks ago. The patient completed 2-week course of prednisone. The patient states he awoke yesterday morning with hives. The patient took Atarax and Benadryl. The patient states after taking Atarax and Benadryl, he began to experience epigastric pain. The patient had nausea, vomiting. The patient also had body aches and chills. The patient presented to [facility]. The patient was admitted for epigastric pain to rule out acute gastritis versus pancreatitis. PAST MEDICAL HISTORY: Significant for hypertension. PAST SURGICAL HISTORY: The patient denies. CURRENT MEDICATIONS: 1. Benazepril 10 mg p.o. daily. 2. Ibuprofen 600 mg p.o. 3 times daily p.r.n. ALLERGIES: To shellfish. SOCIAL HISTORY: The patient is single. The patient denies tobacco or alcohol use. REVIEW OF SYSTEMS: CONSTITUTIONAL: The patient denies weight loss or weight gain. The patient denies fevers or chills. HEENT: The patient denies ear or throat pain. The patient denies headache. CARDIOVASCULAR: The patient denies palpitations or chest pain. CHEST: The patient denies wheezes or shortness of breath. ABDOMEN: The patient complains of nausea with vomiting as above. The patient complains of epigastric pain as above. The patient denies diarrhea or constipation. GENITOURINARY: The patient denies dysuria or increased frequency of urination. NEUROMUSCULAR: The patient denies seizures or generalized weakness. PHYSICAL EXAMINATION: VITAL SIGNS: Temperature 98.5, respirations 20, pulse 75, and blood pressure 127/71. GENERAL: The patient is a well-developed, well-nourished male, in no apparent distress. HEENT: Eyes, pupils are equal and responsive to light and accommodation. Extraocular movements are intact. NECK: Supple without lymphadenopathy. CHEST: Lungs are clear to auscultation bilaterally without wheezes or rales. CARDIOVASCULAR: Regular rhythm and rate. S1 and S2 are normal without murmurs, rubs, or gallops. ABDOMEN: Soft, nondistended with decreased bowel sounds. There is tenderness to palpation in the epigastric region. There is no rebound or guarding. EXTREMITIES: Negative for clubbing, cyanosis, or edema. RECTAL: Refused. GENITAL: Refused. NEUROLOGIC: Cranial nerves II through XII grossly intact without focal deficits. Motor strength is 5/5 bilaterally intact. Deep tendon reflexes are 2+, plantar. LABORATORY AND DIAGNOSTIC DATA: WBC 15.7, hemoglobin 18.6, hematocrit 57.6, and platelets 290,000. Sodium 137, potassium 4.1, chloride 96, CO2 36, BUN 14, creatinine 1.3, and glucose 140. Lipase elevated at 1298 and amylase normal at 102. A CT scan of the abdomen and pelvis was reported as within normal limits. An abdominal ultrasound was reported within normal limits. ASSESSMENT: This is a 56-year-old male with: 1. Epigastric pain. 2. Acute pancreatitis. 3. Nausea with vomiting. 4. Hypertension. TREATMENT: 1. Acute pancreatitis/epigastric pain/nausea/vomiting. Gastroenterology consultation has been obtained with Dr. Juan Mcpherson. The patient is currently tolerating a clear liquid diet. The patient is currently receiving intravenous fluids. The patient is currently asking for morphine for pain control. We will follow recommendations of gastroenterology. 2. Hypertension. Continue benazepril as above. Hua Krishna M.D. DR: GHULAM JOB#: [id number] CC:
[2017-05-24] MEDS: D5 1/2NS 1,000 ML IV SCH ×2 (01:45→15:05)
[2017-05-24] MEDS: Solu-MEDROL 40mg Inj IVP SCH ×2 (05:33→20:23)
[2017-05-24 07:47] LABS: MEAN CORPUSCULAR HEMOGLOBIN 33.1 PG (27.0-31.0); MEAN CORPUSCULAR HGB CONC 35.1 G/DL (32.0-36.0); MEAN CORPUSCULAR VOLUME 94 FL (80-99); MEAN PLATELET VOLUME 7.4 FL (6.5-10.1); PLATELET COUNT 226 K/UL (150-450); RED BLOOD COUNT 4.94 M/UL (4.70-6.10); RED CELL DISTRIBUTION WIDTH 11.5 % (11.6-14.8); WHITE BLOOD COUNT 9.7 K/UL (4.8-10.8)
[2017-05-24 08:19] LABS: AMYLASE 73 U/L (25-115); ANION GAP 4 mmol/L (5-15); CALCIUM 8.5 MG/DL (8.5-10.1); CARBON DIOXIDE 29 MMOL/L (21-32); CHLORIDE 105 MMOL/L (98-107); CHOLESTEROL 178 MG/DL (< 200); CHOLESTEROL/HDL RATIO 3.2 (3.3-4.4); GLOMERULAR FILTRATION RATE > 60 mL/min (>60); LIPASE 211 U/L (73-393); POTASSIUM 4.4 MMOL/L (3.5-5.1); SODIUM 138 MMOL/L (136-145)
[2017-05-24] MEDS: Pantoprazole Inj IV SCH (09:07)
[2017-05-24] MEDS: Heparin 5000 units/ml inj SUBQ SCH ×2 (09:10→20:26)
[2017-05-24 10:08] LABS: BAND NEUTROPHILS % (MANUAL) 4 % (0-8); LYMPHOCYTES % (MANUAL) 10 % (20-45); NEUTROPHILS % (MANUAL) 83 % (45-75); TOTAL CELLS COUNTED 100
[2017-05-24 10:09] LABS: BASOPHILS % (MANUAL) 0 % (0-2); EOSINOPHILS % (MANUAL) 0 % (0-3); PLATELET ESTIMATE ADEQUATE; PLATELET MORPHOLOGY NORMAL
--- NOTE | 2017-05-24 13:11 | Pulmonology Progress Note ---
Assessment/Plan Assessment/Plan ASSESSMENT allergic reaction possible acute pancreatitis, likely drug induced -resolved Leukocytosis epigastric pain HTN PLAN OF CARE [facility] floor IVF tolerates diet trial of CL and advance as tolerated Pain management a/emetic prn GI follows Llipase down to normal CT A/P and abdominal US noted LFT stable lipid panel stable with borderline LDL counselor aid on low fat low cholesterol diet Benadryl prn IV steroids and taper DVT GI prophylaxis patient on LACHELLE, was stop as possible factor in allergic reaction, BP stable w/ out anti anti HN case discussed and evaluated by supervising physician Subjective Allergies: Coded Allergies: SHELLFISH DERIVED (Verified Adverse Reaction, Severe, Hives, 05/23/17) Subjective denies abdominal pain, n/v/ lipase down to normal Objective Last 24 Hour Vital Signs Date Time Temp Pulse Resp B/P (MAP) Pulse Ox O2 Delivery O2 Flow Rate FiO2 05/24/17 11:40 97.9 73 18 102/66 96 Room Air 05/24/17 08:00 99.0 73 20 103/64 96 Room Air 05/24/17 04:00 98.2 72 18 94/62 96 Room Air 05/24/17 00:00 97.9 66 18 91/60 96 Room Air 05/23/17 20:00 98.8 81 18 95/58 96 Room Air 05/23/17 15:38 99.9 85 18 92/45 95 Room Air Intake and Output 05/24/17 05/25/17 19:00 07:00 Intake Total 240 ml Balance 240 ml Intake Oral 240 ml Objective General Appearance: WD/WN, alert Lines, tubes and drains: peripheral HEENT: normocephalic, atraumatic, anicteric, mucous membranes moist Neck: non-tender, supple Respiratory/Chest: chest wall non-tender, lungs clear, no respiratory distress , no accessory muscle use Cardiovascular/Chest: normal peripheral pulses, normal rate, regular rhythm, no JVD Abdomen: normal bowel sounds, non tender, soft Skin: back and chest generalized rash with hives Extremities: normal range of motion, non-tender, no calf tenderness, normal capillary refill Neurologic: no motor/sensory deficits, alert, oriented x 3, responsive, normal mood/affect Musculoskeletal: normal muscle bulk Laboratory Tests 05/24/17 07:00: White Blood Count 9.7, Red Blood Count 4.94, Hemoglobin 16.3, Hematocrit 46.5, Mean Corpuscular Volume 94, Mean Corpuscular Hemoglobin 33.1H, Mean Corpuscular Hemoglobin Concent 35.1, Red Cell Distribution Width 11.5L, Platelet Count 226, Mean Platelet Volume 7.4, Neutrophils (%) (Auto) , Lymphocytes (%) (Auto) , Monocytes (%) (Auto) , Eosinophils (%) (Auto) , Basophils (%) (Auto) , Differential Total Cells Counted 100, Neutrophils % (Manual) 83H, Lymphocytes % (Manual) 10L, Monocytes % (Manual) 3, Eosinophils % (Manual) 0, Basophils % ( Manual) 0, Band Neutrophils 4, Platelet Estimate Adequate, Platelet Morphology Normal, Red Blood Cell Morphology Normal, Sodium Level 138, Potassium Level 4.4 , Chloride Level 105, Carbon Dioxide Level 29, Anion Gap 4L, Blood Urea Nitrogen 10, Creatinine 1.0, Estimat Glomerular Filtration Rate > 60, Glucose Level 148H, Calcium Level 8.5, Triglycerides Level 122, Cholesterol Level 178, LDL Cholesterol 106H, HDL Cholesterol 56, Cholesterol/HDL Ratio 3.2L, Amylase Level 73, Lipase 211 Current Medications Medications (Trade) Dose Ordered Sig/Michelle Route PRN Reason Start Time Stop Time Status Last Admin Dose Admin Acetaminophen (Tylenol) 650 mg Q4H PRN ORAL fever 05/22/17 22:45 06/21/17 22:44 Al Hydroxide/Mg Hydroxide (Mylanta II) 30 ml Q6H PRN ORAL dyspepsia 05/22/17 22:45 06/21/17 22:44 Dextrose (Dextrose 50%) STAT PRN IV Hypoglycemia 05/22/17 22:45 06/21/17 22:44 Dextrose/Sodium Chloride 1,000 ml @ 75 mls/hr [id number] IV 05/22/17 22:36 06/21/17 22:35 05/24/17 01:45 Diphenhydramine HCl (Benadryl) 25 mg Q6H PRN IVP Itching 05/23/17 10:30 06/22/17 10:29 05/23/17 10:55 Diphenhydramine HCl (Benadryl) 25 mg Q6H PRN ORAL Itching/Pruritis 05/22/17 22:45 06/21/17 22:44 Heparin Sodium (Porcine) (Heparin 5000 units/ml) 5,000 units EVERY 12 HOURS SUBQ 05/23/17 09:00 06/22/17 08:59 05/24/17 09:10 Lorazepam (Ativan 2mg/ml 1ml) 1 mg EVERY 4 HOURS PRN IV agitation 05/22/17 22:45 05/29/17 22:44 Methylprednisolone Sodium Succinate (Solu-MEDROL) 40 mg EVERY 8 HOURS IVP 05/23/17 18:00 06/22/17 17:59 05/24/17 05:33 Metoclopramide HCl (Reglan) 10 mg EVERY 6 HOURS PRN IVP servere nauasea 05/22/17 22:45 06/21/17 22:44 Morphine Sulfate (Morphine Sulfate) 2 mg EVERY 4 HOURS PRN IVP severe Pain (Pain Scale 7-10) 05/22/17 22:45 05/29/17 22:44 05/23/17 04:21 Nitroglycerin (Ntg) 0.4 mg Q5M X 3 DOSES PRN SL Prn Chest Pain 05/22/17 22:45 06/21/17 22:44 Ondansetron HCl (Zofran) 4 mg Q6H PRN IVP Nausea & Vomiting 05/22/17 22:45 06/21/17 22:44 Pantoprazole (Protonix) 40 mg DAILY IV 05/23/17 09:00 06/22/17 08:59 05/24/17 09:07 Polyethylene Glycol (Miralax) 17 gm HSPRN PRN ORAL Constipation 05/22/17 22:45 06/21/17 22:44 Promethazine HCl (Phenergan) 25 mg EVERY 8 HOURS PRN IV refractory nausea 05/22/17 22:45 06/21/17 22:44 Temazepam (Restoril) 15 mg HSPRN PRN ORAL Insomnia 05/22/17 22:45 05/29/17 22:44 Tashia Emerson NP (Vanchtein) May 24, 2017 13:11
--- NOTE | 2017-05-24 15:46 | Internal Med Progress Note ---
Subjective Date of Service: May 24, 2017 Physician Name Mario Lara Attending Physician Garrett Reeves MD Current Medications Medications (Trade) Dose Ordered Sig/Michelle Route PRN Reason Start Time Stop Time Status Last Admin Dose Admin Acetaminophen (Tylenol) 650 mg Q4H PRN ORAL fever 05/22/17 22:45 06/21/17 22:44 Al Hydroxide/Mg Hydroxide (Mylanta II) 30 ml Q6H PRN ORAL dyspepsia 05/22/17 22:45 06/21/17 22:44 Dextrose (Dextrose 50%) STAT PRN IV Hypoglycemia 05/22/17 22:45 06/21/17 22:44 Dextrose/Sodium Chloride 1,000 ml @ 75 mls/hr [id number] IV 05/22/17 22:36 06/21/17 22:35 05/24/17 15:05 Diphenhydramine HCl (Benadryl) 25 mg Q6H PRN IVP Itching 05/23/17 10:30 06/22/17 10:29 05/23/17 10:55 Diphenhydramine HCl (Benadryl) 25 mg Q6H PRN ORAL Itching/Pruritis 05/22/17 22:45 06/21/17 22:44 Heparin Sodium (Porcine) (Heparin 5000 units/ml) 5,000 units EVERY 12 HOURS SUBQ 05/23/17 09:00 06/22/17 08:59 05/24/17 09:10 Lorazepam (Ativan 2mg/ml 1ml) 1 mg EVERY 4 HOURS PRN IV agitation 05/22/17 22:45 05/29/17 22:44 Methylprednisolone Sodium Succinate (Solu-MEDROL) 40 mg Q12HR IVP 05/24/17 21:00 06/22/17 17:59 Metoclopramide HCl (Reglan) 10 mg EVERY 6 HOURS PRN IVP servere nauasea 05/22/17 22:45 06/21/17 22:44 Morphine Sulfate (Morphine Sulfate) 2 mg EVERY 4 HOURS PRN IVP severe Pain (Pain Scale 7-10) 05/22/17 22:45 05/29/17 22:44 05/23/17 04:21 Nitroglycerin (Ntg) 0.4 mg Q5M X 3 DOSES PRN SL Prn Chest Pain 05/22/17 22:45 06/21/17 22:44 Ondansetron HCl (Zofran) 4 mg Q6H PRN IVP Nausea & Vomiting 05/22/17 22:45 06/21/17 22:44 Pantoprazole (Protonix) 40 mg DAILY IV 05/23/17 09:00 06/22/17 08:59 05/24/17 09:07 Polyethylene Glycol (Miralax) 17 gm HSPRN PRN ORAL Constipation 05/22/17 22:45 06/21/17 22:44 Promethazine HCl (Phenergan) 25 mg EVERY 8 HOURS PRN IV refractory nausea 05/22/17 22:45 06/21/17 22:44 Temazepam (Restoril) 15 mg HSPRN PRN ORAL Insomnia 05/22/17 22:45 05/29/17 22:44 Allergies: Coded Allergies: SHELLFISH DERIVED (Verified Adverse Reaction, Severe, Hives, 05/23/17) ROS Limited/Unobtainable: No Constitutional: Reports: no symptoms HEENT: Reports: no symptoms Cardiovascular: Reports: no symptoms Respiratory: Reports: no symptoms Gastrointestinal/Abdominal: Reports: abdominal pain, nausea, vomiting Neurologic/Psychiatric: Reports: no symptoms Subjective 56 YO M admitted with epigastric pain with nausea and vomiting. Now pancreatitis. Cover for Int Med - Dr Reeves. Objective Last Vital Signs Date Time Temp Pulse Resp B/P (MAP) Pulse Ox O2 Delivery O2 Flow Rate FiO2 05/24/17 11:40 97.9 73 18 102/66 96 Room Air 05/23/17 12:00 21 Laboratory Tests Test 05/24/17 07:00 White Blood Count 9.7 K/UL (4.8-10.8) Red Blood Count 4.94 M/UL (4.70-6.10) Hemoglobin 16.3 G/DL (14.2-18.0) Hematocrit 46.5 % (42.0-52.0) Mean Corpuscular Volume 94 FL (80-99) Mean Corpuscular Hemoglobin 33.1 PG (27.0-31.0) H Mean Corpuscular Hemoglobin Concent 35.1 G/DL (32.0-36.0) Red Cell Distribution Width 11.5 % (11.6-14.8) L Platelet Count 226 K/UL (150-450) Mean Platelet Volume 7.4 FL (6.5-10.1) Neutrophils (%) (Auto) % (45.0-75.0) Lymphocytes (%) (Auto) % (20.0-45.0) Monocytes (%) (Auto) % (1.0-10.0) Eosinophils (%) (Auto) % (0.0-3.0) Basophils (%) (Auto) % (0.0-2.0) Differential Total Cells Counted 100 Neutrophils % (Manual) 83 % (45-75) H Lymphocytes % (Manual) 10 % (20-45) L Monocytes % (Manual) 3 % (1-10) Eosinophils % (Manual) 0 % (0-3) Basophils % (Manual) 0 % (0-2) Band Neutrophils 4 % (0-8) Platelet Estimate Adequate Platelet Morphology Normal Red Blood Cell Morphology Normal Sodium Level 138 MMOL/L (136-145) Potassium Level 4.4 MMOL/L (3.5-5.1) Chloride Level 105 MMOL/L (98-107) Carbon Dioxide Level 29 MMOL/L (21-32) Anion Gap 4 mmol/L (5-15) L Blood Urea Nitrogen 10 mg/dL (7-18) Creatinine 1.0 MG/DL (0.55-1.30) Estimat Glomerular Filtration Rate > 60 mL/min (>60) Glucose Level 148 MG/DL (74-106) H Calcium Level 8.5 MG/DL (8.5-10.1) Triglycerides Level 122 MG/DL (30-150) Cholesterol Level 178 MG/DL (< 200) LDL Cholesterol 106 mg/dL (<100) H HDL Cholesterol 56 MG/DL (40-60) Cholesterol/HDL Ratio 3.2 (3.3-4.4) L Amylase Level 73 U/L (25-115) Lipase 211 U/L (73-393) Intake and Output 05/24/17 05/25/17 19:00 07:00 Intake Total 480 ml Balance 480 ml Intake Oral 480 ml Objective PHYSICAL EXAMINATION: VITAL SIGNS: Temperature 98.5, respirations 20, pulse 75, and blood pressure 127/71. GENERAL: The patient is a well-developed, well-nourished male, in no apparent distress. HEENT: Eyes, pupils are equal and responsive to light and accommodation. Extraocular movements are intact. NECK: Supple without lymphadenopathy. CHEST: Lungs are clear to auscultation bilaterally without wheezes or rales. CARDIOVASCULAR: Regular rhythm and rate. S1 and S2 are normal without murmurs, rubs, or gallops. ABDOMEN: Soft, nondistended with decreased bowel sounds. There is tenderness to palpation in the epigastric region. There is no rebound or guarding. EXTREMITIES: Negative for clubbing, cyanosis, or edema. RECTAL: Refused. GENITAL: Refused. NEUROLOGIC: Cranial nerves II through XII grossly intact without focal deficits. Motor strength is 5/5 bilaterally intact. Deep tendon reflexes are 2+, plantar. Assessment/Plan Assessment/Plan ASSESSMENT: This is a 56-year-old male with: 1. Epigastric pain. 2. Acute pancreatitis. 3. Nausea with vomiting. 4. Hypertension. TREATMENT: 1. Acute pancreatitis/epigastric pain/nausea/vomiting. Gastroenterology consultation has been obtained with Dr. Juan Mcpherson. The patient is currently tolerating a clear liquid diet. The patient is currently receiving intravenous fluids. The patient is currently asking for morphine for pain control. We will follow recommendations of gastroenterology. 2. Hypertension. Continue benazepril as above. MARIO LARA May 24, 2017 15:46
[2017-05-24] MEDS ORDERED: D5 1/2NS 1000ml IV ONE ×2 (16:15→16:25)
--- NOTE | 2017-05-24 18:09 | General Progress Note ---
Assessment/Plan Assessment/Plan Assessment - resolved pancreatitis - Hives - elevated glucose Recommendations - Advance diet as tolerated - follow labs and exam - OOB Subjective Allergies: Coded Allergies: SHELLFISH DERIVED (Verified Adverse Reaction, Severe, Hives, 05/23/17) Subjective feels better abdominal pains gone no N/V mild itching Objective Last 24 Hour Vital Signs Date Time Temp Pulse Resp B/P (MAP) Pulse Ox O2 Delivery O2 Flow Rate FiO2 05/24/17 16:00 97.2 74 19 124/77 97 Room Air 05/24/17 11:40 97.9 73 18 102/66 96 Room Air 05/24/17 08:00 99.0 73 20 103/64 96 Room Air 05/24/17 04:00 98.2 72 18 94/62 96 Room Air 05/24/17 00:00 97.9 66 18 91/60 96 Room Air 05/23/17 20:00 98.8 81 18 95/58 96 Room Air Intake and Output 05/24/17 05/25/17 19:00 07:00 Intake Total 1380 ml Balance 1380 ml Intake Oral 480 ml IV Total 900 ml Laboratory Tests 05/24/17 07:00: White Blood Count 9.7, Red Blood Count 4.94, Hemoglobin 16.3, Hematocrit 46.5, Mean Corpuscular Volume 94, Mean Corpuscular Hemoglobin 33.1H, Mean Corpuscular Hemoglobin Concent 35.1, Red Cell Distribution Width 11.5L, Platelet Count 226, Mean Platelet Volume 7.4, Neutrophils (%) (Auto) , Lymphocytes (%) (Auto) , Monocytes (%) (Auto) , Eosinophils (%) (Auto) , Basophils (%) (Auto) , Differential Total Cells Counted 100, Neutrophils % (Manual) 83H, Lymphocytes % (Manual) 10L, Monocytes % (Manual) 3, Eosinophils % (Manual) 0, Basophils % ( Manual) 0, Band Neutrophils 4, Platelet Estimate Adequate, Platelet Morphology Normal, Red Blood Cell Morphology Normal, Sodium Level 138, Potassium Level 4.4 , Chloride Level 105, Carbon Dioxide Level 29, Anion Gap 4L, Blood Urea Nitrogen 10, Creatinine 1.0, Estimat Glomerular Filtration Rate > 60, Glucose Level 148H, Calcium Level 8.5, Triglycerides Level 122, Cholesterol Level 178, LDL Cholesterol 106H, HDL Cholesterol 56, Cholesterol/HDL Ratio 3.2L, Amylase Level 73, Lipase 211 Height (Feet): 5 Height (Inches): 7.00 Weight (Pounds): 170 Objective WDWN NCAT few scattered wheals seen on skin supple CTA RRR soft NT ND No edema non focal GRISEL JUSTICE May 24, 2017 18:09
[2017-05-25] MEDS: D5 1/2NS 1,000 ML IV SCH (03:48)
[2017-05-25 04:00] VITALS: BP 118/71
[2017-05-25 07:46] LABS: MEAN CORPUSCULAR HEMOGLOBIN 31.4 PG (27.0-31.0); MEAN CORPUSCULAR HGB CONC 32.9 G/DL (32.0-36.0); MEAN CORPUSCULAR VOLUME 95 FL (80-99); MEAN PLATELET VOLUME 8.2 FL (6.5-10.1); PLATELET COUNT 244 K/UL (150-450); RED BLOOD COUNT 4.93 M/UL (4.70-6.10); RED CELL DISTRIBUTION WIDTH 11.7 % (11.6-14.8); WHITE BLOOD COUNT 9.4 K/UL (4.8-10.8)
[2017-05-25 07:53] LABS: ANION GAP 8 mmol/L (5-15); CALCIUM 8.9 MG/DL (8.5-10.1); CARBON DIOXIDE 28 MMOL/L (21-32); CHLORIDE 105 MMOL/L (98-107); GLOMERULAR FILTRATION RATE > 60 mL/min (>60); LIPASE 164 U/L (73-393); POTASSIUM 4.4 MMOL/L (3.5-5.1); SODIUM 140 MMOL/L (136-145)
[2017-05-25 08:20] LABS: BAND NEUTROPHILS % (MANUAL) 0 % (0-8); BASOPHILS % (MANUAL) 0 % (0-2); EOSINOPHILS % (MANUAL) 0 % (0-3); LYMPHOCYTES % (MANUAL) 6 % (20-45); NEUTROPHILS % (MANUAL) 92 % (45-75); PLATELET ESTIMATE ADEQUATE; PLATELET MORPHOLOGY NORMAL; TOTAL CELLS COUNTED 100
[2017-05-25 08:46] VITALS: BP 116/73
[2017-05-25] MEDS: Solu-MEDROL 40mg Inj IVP SCH (08:56)
[2017-05-25] MEDS: Pantoprazole Inj IV SCH (08:56)
[2017-05-25] MEDS: Heparin 5000 units/ml inj SUBQ SCH (08:59)
--- NOTE | 2017-05-25 10:19 | Pulmonology Progress Note ---
Assessment/Plan Assessment/Plan ASSESSMENT allergic reaction possible acute pancreatitis, likely drug induced -resolved Leukocytosis epigastric pain HTN PLAN OF CARE [facility] floor IVF tolerates diet trial of CL and advance as tolerated Pain management a/emetic prn GI follows Llipase down to normal CT A/P and abdominal US noted LFT stable lipid panel stable with borderline LDL investment counselor on low fat low cholesterol diet Benadryl prn IV steroids and taper DVT GI prophylaxis patient on LACHELLE, was stopped as possible factor in allergic reaction, BP stable w /out anti anti HN case discussed and evaluated by supervising physician Subjective Allergies: Coded Allergies: SHELLFISH DERIVED (Verified Adverse Reaction, Severe, Hives, 05/23/17) Subjective denies abdominal pain, n/v/ lipase down to normal rash improving with IV sterodis Objective Last 24 Hour Vital Signs Date Time Temp Pulse Resp B/P (MAP) Pulse Ox O2 Delivery O2 Flow Rate FiO2 05/25/17 08:46 97.7 94 19 116/73 96 Room Air 05/25/17 04:00 97.2 68 20 118/71 98 Room Air 05/24/17 23:59 97.9 68 18 115/77 97 Room Air 05/24/17 20:00 97.9 78 18 107/63 96 Room Air 05/24/17 16:00 97.2 74 19 124/77 97 Room Air 05/24/17 11:40 97.9 73 18 102/66 96 Room Air Objective General Appearance: WD/WN, alert Lines, tubes and drains: peripheral HEENT: normocephalic, atraumatic, anicteric, mucous membranes moist Neck: non-tender, supple Respiratory/Chest: chest wall non-tender, lungs clear, no respiratory distress , no accessory muscle use Cardiovascular/Chest: normal peripheral pulses, normal rate, regular rhythm, no JVD Abdomen: normal bowel sounds, non tender, soft Extremities: normal range of motion, non-tender, no calf tenderness, normal capillary refill Neurologic: no motor/sensory deficits, alert, oriented x 3, responsive, normal mood/affect Musculoskeletal: normal muscle bulk Laboratory Tests 05/25/17 04:50: White Blood Count 9.4, Red Blood Count 4.93, Hemoglobin 15.5, Hematocrit 47.0, Mean Corpuscular Volume 95, Mean Corpuscular Hemoglobin 31.4H, Mean Corpuscular Hemoglobin Concent 32.9, Red Cell Distribution Width 11.7, Platelet Count 244, Mean Platelet Volume 8.2, Neutrophils (%) (Auto) , Lymphocytes (%) (Auto) , Monocytes (%) (Auto) , Eosinophils (%) (Auto) , Basophils (%) (Auto) , Differential Total Cells Counted 100, Neutrophils % (Manual) 92H, Lymphocytes % (Manual) 6L, Monocytes % (Manual) 2, Eosinophils % (Manual) 0, Basophils % ( Manual) 0, Band Neutrophils 0, Platelet Estimate Adequate, Platelet Morphology Normal, Red Blood Cell Morphology Normal, Sodium Level 140, Potassium Level 4.4 , Chloride Level 105, Carbon Dioxide Level 28, Anion Gap 8, Blood Urea Nitrogen 14, Creatinine 1.0, Estimat Glomerular Filtration Rate > 60, Glucose Level 142H , Calcium Level 8.9, Lipase 164 Current Medications Medications (Trade) Dose Ordered Sig/Michelle Route PRN Reason Start Time Stop Time Status Last Admin Dose Admin Acetaminophen (Tylenol) 650 mg Q4H PRN ORAL fever 05/22/17 22:45 06/21/17 22:44 Al Hydroxide/Mg Hydroxide (Mylanta II) 30 ml Q6H PRN ORAL dyspepsia 05/22/17 22:45 06/21/17 22:44 Dextrose (Dextrose 50%) STAT PRN IV Hypoglycemia 05/22/17 22:45 06/21/17 22:44 Dextrose/Sodium Chloride 1,000 ml @ 75 mls/hr [id number] IV 05/22/17 22:36 06/21/17 22:35 05/25/17 03:48 Diphenhydramine HCl (Benadryl) 25 mg Q6H PRN IVP Itching 05/23/17 10:30 06/22/17 10:29 05/23/17 10:55 Diphenhydramine HCl (Benadryl) 25 mg Q6H PRN ORAL Itching/Pruritis 05/22/17 22:45 06/21/17 22:44 Heparin Sodium (Porcine) (Heparin 5000 units/ml) 5,000 units EVERY 12 HOURS SUBQ 05/23/17 09:00 06/22/17 08:59 05/25/17 08:59 Lorazepam (Ativan 2mg/ml 1ml) 1 mg EVERY 4 HOURS PRN IV agitation 05/22/17 22:45 05/29/17 22:44 Methylprednisolone Sodium Succinate (Solu-MEDROL) 40 mg Q12HR IVP 05/24/17 21:00 06/22/17 17:59 05/25/17 08:56 Metoclopramide HCl (Reglan) 10 mg EVERY 6 HOURS PRN IVP serverdeon mahoneya 05/22/17 22:45 06/21/17 22:44 Morphine Sulfate (Morphine Sulfate) 2 mg EVERY 4 HOURS PRN IVP severe Pain (Pain Scale 7-10) 05/22/17 22:45 05/29/17 22:44 05/23/17 04:21 Nitroglycerin (Ntg) 0.4 mg Q5M X 3 DOSES PRN SL Prn Chest Pain 05/22/17 22:45 06/21/17 22:44 Ondansetron HCl (Zofran) 4 mg Q6H PRN IVP Nausea & Vomiting 05/22/17 22:45 06/21/17 22:44 Pantoprazole (Protonix) 40 mg DAILY IV 05/23/17 09:00 06/22/17 08:59 05/25/17 08:56 Polyethylene Glycol (Miralax) 17 gm HSPRN PRN ORAL Constipation 05/22/17 22:45 06/21/17 22:44 Promethazine HCl (Phenergan) 25 mg EVERY 8 HOURS PRN IV refractory nausea 05/22/17 22:45 06/21/17 22:44 Temazepam (Restoril) 15 mg HSPRN PRN ORAL Insomnia 05/22/17 22:45 05/29/17 22:44 Tashia Emerson NP (Vanchtein) May 25, 2017 10:19
[2017-05-25 11:50] VITALS: BP 136/76
--- NOTE | 2017-05-25 14:29 | General Progress Note ---
Assessment/Plan Assessment/Plan Assessment - resolved pancreatitis - Hives - elevated glucose Recommendations - Advance diet as tolerated - follow labs and exam - OOB - d/c planning Subjective Allergies: Coded Allergies: SHELLFISH DERIVED (Verified Adverse Reaction, Severe, Hives, 05/23/17) Subjective feels OK abdominal pains gone no N/V mild itching Objective Last 24 Hour Vital Signs Date Time Temp Pulse Resp B/P (MAP) Pulse Ox O2 Delivery O2 Flow Rate FiO2 05/25/17 11:50 97.9 85 19 136/76 96 05/25/17 08:46 97.7 94 19 116/73 96 Room Air 05/25/17 04:00 97.2 68 20 118/71 98 Room Air 05/24/17 23:59 97.9 68 18 115/77 97 Room Air 05/24/17 20:00 97.9 78 18 107/63 96 Room Air 05/24/17 16:00 97.2 74 19 124/77 97 Room Air Laboratory Tests 05/25/17 04:50: White Blood Count 9.4, Red Blood Count 4.93, Hemoglobin 15.5, Hematocrit 47.0, Mean Corpuscular Volume 95, Mean Corpuscular Hemoglobin 31.4H, Mean Corpuscular Hemoglobin Concent 32.9, Red Cell Distribution Width 11.7, Platelet Count 244, Mean Platelet Volume 8.2, Neutrophils (%) (Auto) , Lymphocytes (%) (Auto) , Monocytes (%) (Auto) , Eosinophils (%) (Auto) , Basophils (%) (Auto) , Differential Total Cells Counted 100, Neutrophils % (Manual) 92H, Lymphocytes % (Manual) 6L, Monocytes % (Manual) 2, Eosinophils % (Manual) 0, Basophils % ( Manual) 0, Band Neutrophils 0, Platelet Estimate Adequate, Platelet Morphology Normal, Red Blood Cell Morphology Normal, Sodium Level 140, Potassium Level 4.4 , Chloride Level 105, Carbon Dioxide Level 28, Anion Gap 8, Blood Urea Nitrogen 14, Creatinine 1.0, Estimat Glomerular Filtration Rate > 60, Glucose Level 142H , Calcium Level 8.9, Lipase 164 Height (Feet): 5 Height (Inches): 7.00 Weight (Pounds): 170 Objective WDWN NCAT few scattered wheals seen on skin supple CTA RRR soft NT ND No edema non focal GRISEL JUSTICE May 25, 2017 14:29
--- NOTE | 2017-05-25 15:42 | Internal Med Progress Note ---
Subjective Date of Service: May 25, 2017 Physician Name Lara,Mario Attending Physician Garrett Reeves MD Current Medications Medications (Trade) Dose Ordered Sig/Michelle Route PRN Reason Start Time Stop Time Status Last Admin Dose Admin Acetaminophen (Tylenol) 650 mg Q4H PRN ORAL fever 05/22/17 22:45 06/21/17 22:44 Al Hydroxide/Mg Hydroxide (Mylanta II) 30 ml Q6H PRN ORAL dyspepsia 05/22/17 22:45 06/21/17 22:44 Dextrose (Dextrose 50%) STAT PRN IV Hypoglycemia 05/22/17 22:45 06/21/17 22:44 Dextrose/Sodium Chloride 1,000 ml @ 75 mls/hr [id number] IV 05/22/17 22:36 06/21/17 22:35 05/25/17 03:48 Diphenhydramine HCl (Benadryl) 25 mg Q6H PRN IVP Itching 05/23/17 10:30 06/22/17 10:29 05/23/17 10:55 Diphenhydramine HCl (Benadryl) 25 mg Q6H PRN ORAL Itching/Pruritis 05/22/17 22:45 06/21/17 22:44 Heparin Sodium (Porcine) (Heparin 5000 units/ml) 5,000 units EVERY 12 HOURS SUBQ 05/23/17 09:00 06/22/17 08:59 05/25/17 08:59 Lorazepam (Ativan 2mg/ml 1ml) 1 mg EVERY 4 HOURS PRN IV agitation 05/22/17 22:45 05/29/17 22:44 Methylprednisolone Sodium Succinate (Solu-MEDROL) 40 mg DAILY IVP 05/26/17 09:00 06/22/17 17:59 Metoclopramide HCl (Reglan) 10 mg EVERY 6 HOURS PRN IVP servere nauasea 05/22/17 22:45 06/21/17 22:44 Morphine Sulfate (Morphine Sulfate) 2 mg EVERY 4 HOURS PRN IVP severe Pain (Pain Scale 7-10) 05/22/17 22:45 05/29/17 22:44 05/23/17 04:21 Nitroglycerin (Ntg) 0.4 mg Q5M X 3 DOSES PRN SL Prn Chest Pain 05/22/17 22:45 06/21/17 22:44 Ondansetron HCl (Zofran) 4 mg Q6H PRN IVP Nausea & Vomiting 05/22/17 22:45 06/21/17 22:44 Pantoprazole (Protonix) 40 mg DAILY IV 05/23/17 09:00 06/22/17 08:59 05/25/17 08:56 Polyethylene Glycol (Miralax) 17 gm HSPRN PRN ORAL Constipation 05/22/17 22:45 06/21/17 22:44 Promethazine HCl (Phenergan) 25 mg EVERY 8 HOURS PRN IV refractory nausea 05/22/17 22:45 06/21/17 22:44 Temazepam (Restoril) 15 mg HSPRN PRN ORAL Insomnia 05/22/17 22:45 05/29/17 22:44 Allergies: Coded Allergies: SHELLFISH DERIVED (Verified Adverse Reaction, Severe, Hives, 05/23/17) ROS Limited/Unobtainable: No Constitutional: Reports: no symptoms HEENT: Reports: no symptoms Cardiovascular: Reports: no symptoms Respiratory: Reports: no symptoms Gastrointestinal/Abdominal: Reports: no symptoms Genitourinary: Reports: no symptoms Subjective 56 YO M admitted with epigastric pain with nausea and vomiting. Now pancreatitis. Cover for Int Med - Dr Reeves. Tolerating regular diet. Objective Last Vital Signs Date Time Temp Pulse Resp B/P (MAP) Pulse Ox O2 Delivery O2 Flow Rate FiO2 05/25/17 11:50 97.9 85 19 136/76 96 05/25/17 08:46 Room Air 05/23/17 12:00 21 Laboratory Tests Test 05/25/17 04:50 White Blood Count 9.4 K/UL (4.8-10.8) Red Blood Count 4.93 M/UL (4.70-6.10) Hemoglobin 15.5 G/DL (14.2-18.0) Hematocrit 47.0 % (42.0-52.0) Mean Corpuscular Volume 95 FL (80-99) Mean Corpuscular Hemoglobin 31.4 PG (27.0-31.0) H Mean Corpuscular Hemoglobin Concent 32.9 G/DL (32.0-36.0) Red Cell Distribution Width 11.7 % (11.6-14.8) Platelet Count 244 K/UL (150-450) Mean Platelet Volume 8.2 FL (6.5-10.1) Neutrophils (%) (Auto) % (45.0-75.0) Lymphocytes (%) (Auto) % (20.0-45.0) Monocytes (%) (Auto) % (1.0-10.0) Eosinophils (%) (Auto) % (0.0-3.0) Basophils (%) (Auto) % (0.0-2.0) Differential Total Cells Counted 100 Neutrophils % (Manual) 92 % (45-75) H Lymphocytes % (Manual) 6 % (20-45) L Monocytes % (Manual) 2 % (1-10) Eosinophils % (Manual) 0 % (0-3) Basophils % (Manual) 0 % (0-2) Band Neutrophils 0 % (0-8) Platelet Estimate Adequate Platelet Morphology Normal Red Blood Cell Morphology Normal Sodium Level 140 MMOL/L (136-145) Potassium Level 4.4 MMOL/L (3.5-5.1) Chloride Level 105 MMOL/L (98-107) Carbon Dioxide Level 28 MMOL/L (21-32) Anion Gap 8 mmol/L (5-15) Blood Urea Nitrogen 14 mg/dL (7-18) Creatinine 1.0 MG/DL (0.55-1.30) Estimat Glomerular Filtration Rate > 60 mL/min (>60) Glucose Level 142 MG/DL (74-106) H Calcium Level 8.9 MG/DL (8.5-10.1) Lipase 164 U/L (73-393) Intake and Output 05/25/17 05/26/17 19:00 07:00 Intake Total 525 ml Balance 525 ml IV Total 525 ml Objective PHYSICAL EXAMINATION: VITAL SIGNS: Temperature 98.5, respirations 20, pulse 75, and blood pressure 127/71. GENERAL: The patient is a well-developed, well-nourished male, in no apparent distress. HEENT: Eyes, pupils are equal and responsive to light and accommodation. Extraocular movements are intact. NECK: Supple without lymphadenopathy. CHEST: Lungs are clear to auscultation bilaterally without wheezes or rales. CARDIOVASCULAR: Regular rhythm and rate. S1 and S2 are normal without murmurs, rubs, or gallops. ABDOMEN: Soft, nondistended with decreased bowel sounds. There is tenderness to palpation in the epigastric region. There is no rebound or guarding. EXTREMITIES: Negative for clubbing, cyanosis, or edema. RECTAL: Refused. GENITAL: Refused. NEUROLOGIC: Cranial nerves II through XII grossly intact without focal deficits. Motor strength is 5/5 bilaterally intact. Deep tendon reflexes are 2+, plantar. Assessment/Plan Assessment/Plan ASSESSMENT: This is a 56-year-old male with: 1. Epigastric pain. 2. Acute pancreatitis. 3. Nausea with vomiting. 4. Hypertension. TREATMENT: 1. Acute pancreatitis/epigastric pain/nausea/vomiting. Gastroenterology consultation has been obtained with Dr. Juan Mcpherson. The patient is currently tolerating a clear liquid diet. The patient is currently receiving intravenous fluids. The patient is currently asking for morphine for pain control. We will follow recommendations of gastroenterology. 2. Hypertension. Continue benazepril as above. 3. Discharge home today with [facility] for pain and medrol dose pack MARIO LARA May 25, 2017 15:42
[2017-05-25 16:05] VITALS: BP 117/75
[2017-05-26] MEDS ORDERED: D5 1/2NS 1000ml IV ONE (08:00)
[2017-05-26] MEDS ORDERED: Solu-MEDROL 40mg Inj IVP SCH (09:00)
--- NOTE | 2017-05-27 09:23 | Discharge Summary ---
Discharge Summary Hospital Course Date of Admission May 22, 2017 at 20:58 Date of Discharge May 25, 2017 at 17:29 Admitting Diagnosis Pancreatitis HPI Jaylin Peña is a 56 year old male who was admitted on May 22, 2017 at 20: 58 for Pancreatitis Hospital Course dc summary #[id number] Discharge Medications Continued Medications: Albuterol Sulfate* (Albuterol Sulfate Hhn*) 2.5 Mg/3 Ml Vial.neb Unknown Dose INH Q4H PRN for Shortness of Breath, EA Epinephrine (Epipen 2-Jay) 0.3 Mg/0.3 Ml Auto.injct 0.3 MG IM PRN, #1 EA Fluticasone Propionate (Fluticasone Propionate) 1 Sprays Naspr 1 SPRAY NASAL TWICE A DAY, #16 GM Ibuprofen* (Motrin*) 600 Mg Tablet 600 MG ORAL THREE TIMES A DAY, #30 TAB 0 Refills Prednisone* (Prednisone*) 20 Mg Tablet 40 MG ORAL DAILY, #8 TAB Discontinued Medications: Diphenhydramine Hcl* (Benadryl*) 25 Mg Capsule 25 MG ORAL Q6H PRN for Itching, #20 CAP Discharge Condition Upon Discharge: stable Discharge Disposition Patient was discharged to Home (01) Discharge Diagnoses: Ki (Graeme)Tashia NP May 27, 2017 09:23
--- NOTE | 2017-05-28 02:46 | Discharge Summary 2 SIG ---
DATE OF ADMISSION: 05/22/2017 DATE OF DISCHARGE: 05/25/2017 REASON FOR ADMISSION: 56-year-old male with history of hypertension, presented with epigastric pain, nausea, vomiting, body aches and chills. The patient recently developed systemic hives and was on Atarax, Benadryl and oral steroids. Apparently, he had allergy to shellfish and recently ate crab meat. He denied any chest pain, shortness of breath, back pain, neck pain , headache, ear pain, sore throat, or melena. Workup in the emergency room revealed lipase -1298. WBC - 15.7. LFT and bilirubin were stable. CT of the abdomen and pelvis revealed no acute findings. The patient was admitted for further management with diagnosis of acute pancreatitis possibly drug-induced, leukocytosis, epigastric pain with nausea, vomiting, hives and hypertension. HOSPITAL COURSE: The patient was admitted to Med/Surg floor. The patient was started on IV fluids. The patient was started on trial of clear liquids. GI consulted. The patient was started on IV steroids and Benadryl as needed for symptomatic relief. Pain management was provided. LACHELLE inhibitor was stopped as a possible factor in allergic reaction. Blood pressure was stable without any LACHELLE inhibitor. The patient will follow up with the primary medical doctor and initiate another antihypertensive medication as needed. LFTs were stable. Lipid panel was stable with borderline LDL. The patient was counseled on low-fat and low-cholesterol diet. IV steroids were tapered and changed to oral steroid for additional week upon discharge. Rash cleared. Lipase down to normal from initial 1298 down to 164. GI closely followed the patient. Acute pancreatitis resolved, likely was drug-induced. Abdominal ultrasound revealed mildly dilated common bile duct. Again to reiterate, LFT were stable. The patient was stable for discharge. Patient was able to tolerate diet, no pain, no nausea, no vomiting. Pain resolved. Rash resolving FINAL DIAGNOSES: 1. Acute pancreatitis likely drug-induced, resolved. 2. Allergic reaction with hives. 3. Leukocytosis, resolved. 4. Epigastric pain. 5. Hypertension. DISCHARGE MEDICATIONS: See medication reconciliation list. DISCHARGE INSTRUCTIONS: The patient was discharged home. Follow up with the primary medical doctor next week. Garrett Reeves M.D. Tashia Emerson N.P. (Vanchtein) DR: BRENNAN JOB#: [id number] CC: DEBBIE
== END 2017-05-25 17:29 | disposition home or self-care (01) | DRG 440 ==
LOC: EMR 19:19 → 4E 20:58 → EDBEDREQ 21:24 → 4E 22:18
DX: K85.30 Drug induced acute pancreatitis without necrosis or infection (principal); I10 Essential (primary) hypertension; L50.0 Allergic urticaria; T50.905A Adverse effect of unspecified drugs, medicaments and biological substances, initial encounter; T50.995A Adverse effect of other drugs, medicaments and biological substances, initial encounter; Z91.013 Allergy to seafood
CPT/HCPCS: 36415; 74177; 76700; 80048; 80053; 80061; 81003; 82150; 82248; 83690; 85007; 85025; 85730; 99285

== ENCOUNTER 2017-12-21 21:01 | Emergency (ER) | payer MEDICARE, MEDICAID ==
[~2017-12-21] VITALS: Ht 170.2 cm; Wt 80.3 kg
[2017-12-21 21:38] VITALS: BP 168/98
[2017-12-21] MEDS ORDERED: Morphine Sulfate 2mg/ml Inj(IV/IM USE ONLY) IVP ONE (21:45)
--- NOTE | 2017-12-21 21:54 | Emergency Room Report ---
History of Present Illness General Chief Complaint: Vomiting Source: Patient Present Illness HPI Patient presents with vomiting and abdominal pain after eating 3 bunches of Elderberries. He vomited up some berries he thinks. He ate them at 7:30 PM. He started feeling symptoms around 8. He's vomited 2 or 3 times and feels somewhat better but still has epigastric pain and cramping. There is no blood. He feels somewhat weak also. They were picked from a tree and he states that some were not ripened. He denies any fevers, chest pain, diarrhea, dysuria or joint pain. H/O HTN and arthritis. Allergies: Coded Allergies: SHELLFISH DERIVED (Verified Adverse Reaction, Severe, Hives, 05/23/17) Patient History Past Medical History: see triage record, HTN Social History: Denies: smoking, alcohol use, drug use Social History Narrative from home Reviewed Nursing Documentation: PMH: Agreed; PSxH: Agreed Nursing Documentation-PMH Hx Cardiac Problems: Yes Hx Hypertension: Yes Hx Cancer: No Hx Gastrointestinal Problems: No Review of Systems All Other Systems: negative except mentioned in HPI Physical Exam Vital Signs Date Time Temp Pulse Resp B/P (MAP) Pulse Ox O2 Delivery O2 Flow Rate FiO2 12/21/17 21:18 98.2 90 18 172/112 96 Room Air 98.2 Sp02 EP Interpretation: reviewed, normal General Appearance: well appearing, no apparent distress, GCS 15 Head: normocephalic Eyes: bilateral eye normal inspection, bilateral eye PERRL, bilateral eye EOMI ENT: moist mucus membranes Neck: supple Respiratory: lungs clear, normal breath sounds Cardiovascular #1: regular rate, rhythm Cardiovascular #2: 2+ radial (R) Gastrointestinal: normal inspection, normal bowel sounds, no mass, non- distended, no guarding, no rebound, tenderness - Epigastric Musculoskeletal: back normal, gait/station normal, normal range of motion Neurologic: alert, oriented x3, motor strength/tone normal, sensory intact, normal gait, speech normal Psychiatric: anxious Skin: normal inspection, warm/dry Medical Decision Making Diagnostic Impression: Primary Impression: Elderberry exposure Additional Impressions: Nausea and vomiting Qualified Codes: R11.2 - Nausea with vomiting, unspecified Epigastric pain ER Course Patient presents with nausea vomiting and epigastric pain after ingesting Elderberries. Differential includes alkaloid toxicity, cyanide poisoning, gastroenteritis amongst others. Review of Elderberry toxicity. The patient will be evaluated with EKG, labs including a venous blood gas. The patient will be treated with IV hydration, Zofran and Pepcid. Also he'll receive a small dose of morphine. Labs significant for normal carboxyhemoglobin, CMP and WBC. H/H high. UA clear. Patient tolerate PO. Pain resolved. States has loose stools. Discussed need for follow up with his own MD and purpose of prescriptions. Patient is stable for outpatient observation and treatment Laboratory Tests Test 12/21/17 21:38 12/21/17 22:00 12/21/17 23:25 Venous Blood pH Pending Venous Blood Partial Pressure CO2 Pending Venous Blood Partial Pressure O2 Pending Venous Blood HCO3 Pending Venous Blood Total Carbon Dioxide Pending Venous Bld O2 Saturation (Measured) 76.0 Venous Blood Oxygen Saturation Pending Venous Blood Base Excess Pending Methemoglobin 0.6 Sodium (Blood Gas) Pending White Blood Count 7.6 K/UL (4.8-10.8) Red Blood Count 5.82 M/UL (4.70-6.10) Hemoglobin 17.6 G/DL (14.2-18.0) Hematocrit 52.8 % (42.0-52.0) H Mean Corpuscular Volume 91 FL (80-99) Mean Corpuscular Hemoglobin 30.3 PG (27.0-31.0) Mean Corpuscular Hemoglobin Concent 33.4 G/DL (32.0-36.0) Red Cell Distribution Width 11.5 % (11.6-14.8) L Platelet Count 219 K/UL (150-450) Mean Platelet Volume 7.5 FL (6.5-10.1) Neutrophils (%) (Auto) 40.5 % (45.0-75.0) L Lymphocytes (%) (Auto) 47.8 % (20.0-45.0) H Monocytes (%) (Auto) 7.7 % (1.0-10.0) Eosinophils (%) (Auto) 1.7 % (0.0-3.0) Basophils (%) (Auto) 2.3 % (0.0-2.0) H Sodium Level 138 MMOL/L (136-145) Potassium Level 3.9 MMOL/L (3.5-5.1) Chloride Level 103 MMOL/L (98-107) Carbon Dioxide Level 29 MMOL/L (21-32) Anion Gap 7 mmol/L (5-15) Blood Urea Nitrogen 11 mg/dL (7-18) Creatinine 1.1 MG/DL (0.55-1.30) Estimate Glomerular Filtration Rate > 60 mL/min (>60) Glucose Level 114 MG/DL (74-106) H Calcium Level 9.5 MG/DL (8.5-10.1) Total Bilirubin 0.5 MG/DL (0.2-1.0) Aspartate Amino Transferase (AST) 23 U/L (15-37) Alanine Aminotransferase (ALT) 40 U/L (12-78) Alkaline Phosphatase 82 U/L (46-116) Troponin I 0.000 ng/mL (0.000-0.056) Total Protein 8.9 G/DL (6.4-8.2) H Albumin 4.3 G/DL (3.4-5.0) Globulin 4.6 g/dL Albumin/Globulin Ratio 0.9 (1.0-2.7) L Lipase 284 U/L (73-393) Urine Color Pale yellow Urine Appearance Clear Urine pH 5 (4.5-8.0) Urine Specific Butler 1.025 (1.005-1.035) Urine Protein Negative (NEGATIVE) Urine Glucose (UA) Negative (NEGATIVE) Urine Ketones Negative (NEGATIVE) Urine Occult Blood Negative (NEGATIVE) Urine Nitrite Negative (NEGATIVE) Urine Bilirubin Negative (NEGATIVE) Urine Urobilinogen Normal MG/DL (0.0-1.0) Urine Leukocyte Esterase Negative (NEGATIVE) EKG Diagnostic Results Rate: normal Rhythm: NSR ST Segments: no acute changes - RBBB Rhythm Strip Diag. Results EP Interpretation: yes Rhythm: NSR, no PVC's, no ectopy Last Vital Signs Date Time Temp Pulse Resp B/P (MAP) Pulse Ox O2 Delivery O2 Flow Rate FiO2 12/22/17 01:55 98.0 154 18 154/78 99 Room Air 98.0 Status: improved Disposition: HOME, SELF-CARE Condition: Improved Scripts Tramadol Hcl* (ULTRAM*) 50 Mg Tablet 50 MG ORAL Q6H PRN for For Pain, #6 TAB 0 Refills Prov: Alexis Ashley M.D. 12/22/17 Famotidine (PEPCID AC) 20 Mg Tablet 20 MG PO DAILY, #14 TAB Prov: Alexis Ashley M.D. 12/22/17 Ondansetron Odt* (ZOFRAN ODT*) 4 Mg Tab.rapdis 4 MG BC EVERY 8 HOURS, #6 TAB 0 Refills Prov: Alexis Ashley M.D. 12/22/17 Referrals: NON PHYSICIAN (PCP) Alexis Ashley M.D. Dec 21, 2017 21:54
[2017-12-21 22:25] LABS: BASOPHILS % (AUTO) 2.3 % (0.0-2.0); EOSINOPHILS % (AUTO) 1.7 % (0.0-3.0); HEMATOCRIT 52.8 % (42.0-52.0); HEMOGLOBIN 17.6 G/DL (14.2-18.0); LYMPHOCYTES % (AUTO) 47.8 % (20.0-45.0); MEAN CORPUSCULAR VOLUME 91 FL (80-99); MONOCYTES % (AUTO) 7.7 % (1.0-10.0); NEUTROPHILS % (AUTO) 40.5 % (45.0-75.0); PLATELET COUNT 219 K/UL (150-450); RED BLOOD COUNT 5.82 M/UL (4.70-6.10); RED CELL DISTRIBUTION WIDTH 11.5 % (11.6-14.8); WHITE BLOOD COUNT 7.6 K/UL (4.8-10.8)
[2017-12-21 22:46] LABS: ANION GAP 7 mmol/L (5-15); BLOOD UREA NITROGEN 11 mg/dL (7-18); CALCIUM 9.5 MG/DL (8.5-10.1); CARBON DIOXIDE 29 MMOL/L (21-32); CHLORIDE 103 MMOL/L (98-107); CREATININE 1.1 MG/DL (0.55-1.30); POTASSIUM 3.9 MMOL/L (3.5-5.1); SODIUM 138 MMOL/L (136-145)
[2017-12-21 22:51] LABS: ALANINE AMINOTRANSFERASE 40 U/L (12-78); ALBUMIN 4.3 G/DL (3.4-5.0); ALBUMIN/GLOBULIN RATIO 0.9 (1.0-2.7); ALKALINE PHOSPHATASE 82 U/L (46-116); ASPARTATE AMINO TRANSFERASE 23 U/L (15-37); BILIRUBIN,TOTAL 0.5 MG/DL (0.2-1.0)
[2017-12-21 23:30] VITALS: BP 159/89
[2017-12-21 23:39] LABS: APPEARANCE,URINE CLEAR; BILIRUBIN, URINE NEGATIVE (NEGATIVE); COLOR,URINE PALE YELLOW; GLUCOSE, URINE (UA) NEGATIVE (NEGATIVE); KETONES,URINE NEGATIVE (NEGATIVE); LEUKOCYTE ESTERASE ,URINE NEGATIVE (NEGATIVE); NITRITE,URINE NEGATIVE (NEGATIVE); PH,URINE 5 (4.5-8.0); UROBILINOGEN,URINE NORMAL MG/DL (0.0-1.0)
[2017-12-21 23:42] LABS: PROTEIN,URINE NEGATIVE (NEGATIVE)
[2017-12-22 00:06] VITALS: BP 163/90
[2017-12-22] MEDS ORDERED: PEPCID AC20 M2 PO (01:32)
[2017-12-22] MEDS ORDERED: ONDANSETRON ODT4 MG BC (01:32)
[2017-12-22] MEDS ORDERED: TRAMADOL HCL50 MG ORAL (01:32)
[2017-12-22 01:45] VITALS: BP 154/78
[2017-12-22 01:55] VITALS: BP 154/78
--- NOTE | 2017-12-26 16:29 | Cardiology Report ---
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
== END 2017-12-22 01:58 | disposition home or self-care (01) ==
LOC: EMR 21:39
DX: R11.2 Nausea with vomiting, unspecified (principal); R10.13 Epigastric pain; Z91.013 Allergy to seafood; I10 Essential (primary) hypertension
CPT/HCPCS: 36415; 80053; 81003; 83690; 84484; 85025; 93005; 99283; J2270; J2405; S0028